=== PATIENT | male | born 1980 | race Caucasian/White ===

== ENCOUNTER 2024-04-20 18:26 | Inpatient (IN) | payer BC, SELFPAY ==
[2024-04-20] VITALS (23 sets, daily range): BP systolic 154–183; BP diastolic 89–110; PULSE 55–84; RESP 16–20; TEMP 35.8–36.7; O2SAT 90–99; BMI 31.2; BMI 32.6
--- NOTE | 2024-04-20 19:15 | CRLHL7_ITS ---
For Patients: As a result of the 21st Century Cures Act, medical imaging exams and procedure reports are released immediately into your electronic medical record. You may view this report before your referring provider. If you have questions, please contact your health care provider. Indication: Rule out dissection and chest abdominal pain Technique: Volumetric multidetector CT images of the chest, abdomen, and pelvis were obtained after the administration of intravenous contrast using an angiographic protocol. Ninety five cc Isovue three seventy low osmolar intravenous contrast Comparison: None available. FINDINGS: CHEST The thoracic inlet is unremarkable. The thyroid gland is within normal limits. The thoracic aorta is nonaneurysmal. There is no filling defect to suggest pulmonary embolus. There are calcified mediastinal and hilar lymph nodes. There is no axillary adenopathy. There is mild central bronchial thickening with basilar atelectasis and parenchymal scar. There is no pneumothorax or pleural effusion. Minimal calcified granulomas are seen in the left lung base. The thoracic osseus structures are intact without fracture, lytic, or blastic lesion. The thoracic vertebral body heights are grossly maintained with minimal endplate Schmorl`s defects. There is mild straightening of the normal thoracic kyphosis without evidence of significant spondylolisthesis. ABDOMEN AND PELVIS The liver is markedly enlarged with extensive hepatic steatosis. There is no focal abnormality. The spleen is normal in attenuation and size. There are cholesterol containing gallstones within the gallbladder lumen. There is no intrahepatic or common ductal dilatation. There is mild thickening of the gastric antrum with minimal duodenal mucosal hyperemia. There is moderate peripancreatic inflammatory change consistent with pancreatitis. The adrenal glands are unremarkable without evidence of adenoma. The kidneys are preserved and corticomedullary differentiation. There is no hydronephrosis or radiopaque calculus. There is a minimal amount of intracolonic stool. There is prior colectomy and reanastomosis. The appendix is likely surgically absent. The abdominal aorta is nonaneurysmal with no significant atherosclerotic disease or filling defect. Normal celiac axis, superior mesenteric and inferior mesenteric arteries.. The remaining solid pelvic viscera are otherwise grossly unremarkable. There is no pathologically enlarged epigastric, mesenteric, retroperitoneal, or pelvic sidewall lymph node. The anterior abdominal wall is grossly intact without significant hernias. There is no free air or free fluid. The visualized osseous structures are grossly intact without evidence of displaced fracture, lytic or blastic lesion. There is prior left hip arthroplasty. The lumbar vertebral body heights are grossly maintained with mild degenerative disc disease. There is no significant spondylolisthesis or displaced fracture. Impression: 1. Minimal basilar atelectasis and parenchymal scar. 2. Moderate peripancreatic inflammatory change consistent with pancreatitis. No evidence of pancreatic necrosis. Marked hepatomegaly and severe hepatic steatosis. 3. Unremarkable aorta and branch vessels. No evidence of dissection. Please note that all CT scans at this facility use dose modulation, iterative reconstruction, and/or weight-based dosing when appropriate to reduce radiation dose to as low as reasonably achievable. Dictated by Vidal Whitten MD @ 04/20/2024 8:30:32 PM (Electronically Signed)
[2024-04-20 19:25] LABS: Basophils Percent Auto 0.4 % (0.0-3.0); Hematocrit 47.7 % (37.0-53.0); Immature Granulocytes Pct Auto 0.7 %; Lymphocytes Percent Auto 16.7 % (20-44); Mean Corpuscular HGB Conc 34 gm/dL (32-36); Mean Corpuscular Hemoglobin 33 pg (26-34); Mean Corpuscular Volume 99 fL (80-100); Monocytes Percent Auto 6.5 % (0.0-11.0); Neutrophils Percent Auto 74.7 % (42.0-72.0); Platelet Count* 284 K/uL (140-440); RDW Coefficient of Variation % 12.1 % (11.5-15.5); White Blood Count* 12.42 K/uL (4.50-11.00)
[2024-04-20 19:28] LABS: Lactate* 4.7 mmol/L (0.5-1.9)
[2024-04-20 19:29] LABS: Slide Review Reflex No
--- NOTE | 2024-04-20 19:40 | ED_ITS ---
HPI - General Adult General Chief complaint: Abdominal Pain Stated complaint: chest/abdomen pain Time Seen by Provider: 04/20/24 19:04 Source: patient Mode of arrival: ambulatory Limitations: no limitations History of Present Illness HPI narrative: 44-year-old male coming in today complaining of chest and abdominal pain that radiates into his back. Pain started around 3 in the afternoon today, 4 hours ago. He states that it started on is his chest, radiated into the abdomen and into his entire back. It feels the pain from his shoulders all the way down to his arm buttocks. Nothing seems to make the pain better. It causes him to feel short of breath, he can not take deep breaths. He states that he feels sweaty. He denies fevers or chills. No vomiting. He denies constipation, states that has about 8 bowel movements per day and this is normal since he had part of his colon removed secondary to ulcerative colitis. He currently takes no medications. He does drink alcohol daily, a little to a lot-he cannot be more specific. States that he still has his gallbladder. Related Data Home Medications ?Medication ?Instructions ?Recorded ?Confirmed No Known Home Medications 04/20/24 04/20/24 Allergies Allergy/AdvReac Type Severity Reaction Status Date / Time No Known Drug Allergies Allergy Verified 04/20/24 18:57 Review of Systems Status of ROS: Reports: 10 or more systems reviewed and unremarkable except as noted in History and below Exam Narrative: Exam Narrative: Well-nourished well-developed patient , clearly uncomfortable. Alert and oriented. Answers questions appropriately. Mood and affect are appropriate. Thoughts are goal oriented and rational. No tangential or magical thinking noted. Patient speaks in full sentences without needing to catch his breath. Patient is diaphoretic. Multiple facial piercings. HEENT: Normocephalic atraumatic. Pupils are equally round reactive to light. Extraocular muscles are intact. Conjunctivae are moist without any icterus noted. Moist mucous membranes. Posterior pharynx is normal. Neck is soft without any lymphadenopathy or thyromegaly. No masses are appreciated. Cardiovascular: Heart is regular rate and rhythm S1 and S2 are present without any murmurs. Lungs: Clear to auscultation bilaterally no wheezes rhonchi or rales are appreciated. Patient complains of discomfort with deep breathing. Abdomen: Soft with normal bowel sounds. He has epigastric tenderness and suprapubic tenderness. Hypoactive bowel sounds. Extremities: Bilateral lower extremities are without edema. Normal DP and PT pulses. Skin: Well perfused, clammy. Back is normal appearance. Const: Vital Signs, click to edit/add: Vital Signs - 24 hr 04/20/24 18:57 04/20/24 19:13 04/20/24 19:15 Temperature 97.6 F Pulse Rate 55 L Pulse Rate [Pulse Oximeter] 68 Respiratory Rate 20 Blood Pressure Blood Pressure [Ri ght Upper Arm] 177/110 H Pulse Oximetry 98 99 96 Oxygen Delivery Me thod Room Air 04/20/24 19:28 04/20/24 19:30 04/20/24 19:35 Temperature Pulse Rate 60 61 57 L Pulse Rate [Pulse Oximeter] Respiratory Rate Blood Pressure 183/103 H Blood Pressure [Ri ght Upper Arm] Pulse Oximetry 93 95 96 Oxygen Delivery Me thod 04/20/24 19:45 04/20/24 19:47 04/20/24 20:00 Temperature Pulse Rate 59 L 57 L 62 Pulse Rate [Pulse Oximeter] Respiratory Rate Blood Pressure 172/103 H Blood Pressure [Ri ght Upper Arm] Pulse Oximetry 96 95 94 Oxygen Delivery Me thod 04/20/24 20:02 Temperature Pulse Rate 68 Pulse Rate [Pulse Oximeter] Respiratory Rate Blood Pressure 167/97 H Blood Pressure [Ri ght Upper Arm] Pulse Oximetry 94 Oxygen Delivery Me thod Course Course ED Course: IV is established. EKG, read by me, shows dryness bradycardia with a pulse of 59. Given the patient's diffuse pain and diaphoresis, concern for dissection and lysis. Therefore chest abdomen pelvis CT was ordered right away. In the meantime labs were drawn and lactate is elevated at 4.7. IV fluids are started. A CBC shows a slightly elevated white cell count 12.4. D-dimer is elevated at 1.6 Electrolytes are unremarkable. Calcium was elevated at 11.4. LFT show an AST of 149 ALT of 195, normal bilirubin levels. Normal troponin. Albumin and total protein are slightly elevated. Lipase is markedly elevated at 4624. 2 L of IV fluids are started. CT results showing pancreatitis, no evidence of dissection. Vital Signs Vital signs: Initial Vital Signs Temperature 97.6 F 04/20/24 18:57 Temperature Source Oral 04/20/24 18:57 Pulse Rate 68 04/20/24 18:57 Respiratory Rate 20 04/20/24 18:57 Blood Pressure 177/110 H 04/20/24 18:57 Blood Pressure Mean 132 H 04/20/24 18:57 Pulse Oximetry 98 04/20/24 18:57 Oxygen Delivery Method Room Air 04/20/24 18:57 Vital Signs Temperature 97.6 F 04/20/24 18:57 Pulse Rate 68 04/20/24 18:57 Respiratory Rate 20 04/20/24 18:57 Blood Pressure 177/110 H 04/20/24 18:57 Pulse Oximetry 98 04/20/24 18:57 Oxygen Delivery Method Room Air 04/20/24 18:57 Temperature 97.6 F 04/20/24 18:57 Pulse Rate 68 04/20/24 20:02 Respiratory Rate 20 04/20/24 18:57 Blood Pressure 167/97 H 04/20/24 20:02 Pulse Oximetry 94 04/20/24 20:02 Oxygen Delivery Method Room Air 04/20/24 18:57 Medications Administered Medications: Generic Name Dose Route Start Last Admin Trade Name Freq PRN Reason Stop Dose Admin Sodium Chloride 1,000 mls @ 1,000 mls/hr 04/20/24 19:45 04/20/24 20:24 0.9 % Sodium Chloride 1000 Ml IV 04/20/24 20:44 Infused .Q1H EVAN Infusion Sodium Chloride 1,000 mls @ 1,000 mls/hr 04/20/24 20:30 04/20/24 20:24 0.9 % Sodium Chloride 1000 Ml IV 04/20/24 21:29 1,000 mls/hr .Q1H EVAN Administration Medical Decision Making MDM Narrative Medical decision making narrative: 44-year-old male with pancreatitis. Patient will be admitted for management. Lab Data Labs: Lab Results 04/20/24 04/20/24 Range/Units 19:10 19:13 WBC 12.42 H (4.50-11.00) K/uL RBC 4.80 (4.30-5.90) m/uL Hgb 16.0 (13.5-17.5) gm/dL Hct 47.7 (37.0-53.0) % MCV 99 (80-100) fL MCH 33 (26-34) pg MCHC 34 (32-36) gm/dL RDW Coeff of [place] 12.1 (11.5-15.5) % Plt Count 284 (140-440) K/uL Neut % (Auto) 74.7 H (42.0-72.0) % Lymph % (Auto) 16.7 L (20-44) % [place] % (Auto) 6.5 (0.0-11.0) % Eos % (Auto) 1.0 (0.0-7.0) % Baso % (Auto) 0.4 (0.0-3.0) % Neut # (Auto) 9.30 H (1.7-7.0) K/uL Lymph # (Auto) 2.10 (0.90-2.90) K/uL [place] # (Auto) 0.80 (0.00-0.90) K/UL Eos # (Auto) 0.10 (0.00-0.50) K/uL Baso # (Auto) 0.00 (0.00-0.30) K/uL Abs Immat Gran (auto) 0.10 (0.00-0.30) K/uL Imm/Tot Granulo (auto) 0.7 % D-Dimer Quant (PE/DVT) 1.69 H (0.00-0.50) ug/ml Sodium 139 (135-149) mmol/L Potassium 3.5 L (3.6-5.1) mmol/L Chloride 97 (96-114) mmol/L Carbon Dioxide 30 (20-32) mmol/L Anion Gap 12 (7-15) mEq/L BUN 11 (5-24) mg/dL Creatinine 1.2 (0.5-1.5) mg/dL Estimated Creat Clear 87.12 Estimated GFR 77 ml/min Glucose 155 H (60-115) mg/dL Lactate 4.7 H* (0.5-1.9) mmol/L Calcium 11.4 H (8.4-10.6) mg/dL Total Bilirubin 0.8 (0.1-1.5) mg/dL Direct Bilirubin 0.5 (0.0-0.5) mg/dL AST 149 H (12-35) U/L ALT 195 H (4-50) U/L Alkaline Phosphatase 85 (40-150) U/L Troponin I < 0.01 L (0.01-0.04) ng/mL C-Reactive Protein 1.1 H (0.5-1.0) mg/dL Total Protein 8.8 H (6.0-8.3) g/dL Albumin 5.2 H (3.3-5.0) g/dL Lipase 4624 H (23-300) U/L Procalcitonin 0.10 (<0.50) ng/mL Ethyl Alcohol < 0.01 L (0.01-0.03) % POC Troponin I 0.00 L (0.01-0.04) ng/ml Imaging Data CT Chest/Ab/Pelvis: Attestation: I have reviewed the pertinent imaging results. Radiologist's impression: Technique: Volumetric multidetector CT images of the chest, abdomen, and pelvis were obtained after the administration of intravenous contrast using an angiographic protocol. Ninety five cc Isovue three seventy low osmolar intravenous contrast Comparison: None available. FINDINGS: CHEST The thoracic inlet is unremarkable. The thyroid gland is within normal limits. The thoracic aorta is nonaneurysmal. There is no filling defect to suggest pulmonary embolus. There are calcified mediastinal and hilar lymph nodes. There is no axillary adenopathy. There is mild central bronchial thickening with basilar atelectasis and parenchymal scar. There is no pneumothorax or pleural effusion. Minimal calcified granulomas are seen in the left lung base. The thoracic osseus structures are intact without fracture, lytic, or blastic lesion. The thoracic vertebral body heights are grossly maintained with minimal endplate Schmorl`s defects. There is mild straightening of the normal thoracic kyphosis without evidence of significant spondylolisthesis. ABDOMEN AND PELVIS The liver is markedly enlarged with extensive hepatic steatosis. There is no focal abnormality. The spleen is normal in attenuation and size. There are cholesterol containing gallstones within the gallbladder lumen. There is no intrahepatic or common ductal dilatation. There is mild thickening of the gastric antrum with minimal duodenal mucosal hyperemia. There is moderate peripancreatic inflammatory change consistent with pancreatitis. The adrenal glands are unremarkable without evidence of adenoma. The kidneys are preserved and corticomedullary differentiation. There is no hydronephrosis or radiopaque calculus. There is a minimal amount of intracolonic stool. There is prior colectomy and reanastomosis. The appendix is likely surgically absent. The abdominal aorta is nonaneurysmal with no significant atherosclerotic disease or filling defect. Normal celiac axis, superior mesenteric and inferior mesenteric arteries.. The remaining solid pelvic viscera are otherwise grossly unremarkable. There is no pathologically enlarged epigastric, mesenteric, retroperitoneal, or pelvic sidewall lymph node. The anterior abdominal wall is grossly intact without significant hernias. There is no free air or free fluid. The visualized osseous structures are grossly intact without evidence of displaced fracture, lytic or blastic lesion. There is prior left hip arthroplasty. The lumbar vertebral body heights are grossly maintained with mild degenerative disc disease. There is no significant spondylolisthesis or displaced fracture. Impression: 1. Minimal basilar atelectasis and parenchymal scar. 2. Moderate peripancreatic inflammatory change consistent with pancreatitis. No evidence of pancreatic necrosis. Marked hepatomegaly and severe hepatic steatosis. 3. Unremarkable aorta and branch vessels. No evidence of dissection. ECG Data Attestation: I personally reviewed and interpreted this ECG as follows: Discharge Plan Discharge Clinical Impression: Pancreatitis Patient Disposition: Admitted As Observation Condition: Stable Prescriptions: No Action No Known Home Medications Follow Up/Referrals: Provider,Not a Local [Primary Care Provider] -
[2024-04-20 19:49] LABS: Albumin* 5.2 g/dL (3.3-5.0); Chloride* 97 mmol/L (96-114); Sodium* 139 mmol/L (135-149)
[2024-04-20 19:50] LABS: D Dimer Quantitative* 1.69 ug/ml (0.00-0.50); Potassium* 3.5 mmol/L (3.6-5.1)
[2024-04-20 19:51] LABS: Creatinine* 1.2 mg/dL (0.5-1.5); Est. Creatinine Clearance* 87.12; Estimated Glomerular Filt Rate 77 ml/min
[2024-04-20 19:52] LABS: Alkaline Phosphatase* 85 U/L (40-150); Anion Gap 12 mEq/L (7-15); Aspartate Amino Transferase* 149 U/L (12-35); Bilirubin Direct* 0.5 mg/dL (0.0-0.5); Bilirubin Total* 0.8 mg/dL (0.1-1.5); Blood Urea Nitrogen* 11 mg/dL (5-24); Carbon Dioxide* 30 mmol/L (20-32); Glucose* 155 mg/dL (60-115); Total Protein* 8.8 g/dL (6.0-8.3)
[2024-04-20 19:53] LABS: Alanine Aminotransferase* 195 U/L (4-50); Calcium* 11.4 mg/dL (8.4-10.6)
[2024-04-20 19:55] LABS: C Reactive Protein* 1.1 mg/dL (0.5-1.0)
[2024-04-20] MEDS: 0.9 % SODIUM CHLORIDE 1000 ml 1,000 ML IV ×2 (19:55→20:24)
[2024-04-20 19:56] LABS: Ethanol* < 0.01 % (0.01-0.03)
[2024-04-20 20:05] LABS: Troponin I* < 0.01 ng/mL (0.01-0.04)
[2024-04-20 20:11] LABS: Lipase* 4624 U/L (23-300)
[2024-04-20] MEDS: MORPHINE 2 MG/ML inj IVP (20:46)
[2024-04-20 20:57] LABS: Appearance Urine Clear (Clear); Bilirubin Urine Negative (Negative); Blood Urine Negative (Negative); Color Urine Yellow (Yellow); Glucose Urine Negative (Negative); Ketones Urine Negative (Negative); Leukocyte Esterase Urine Negative (Negative); Nitrite Urine Negative (Negative); Protein Urine Negative (Negative); Specific Gravity Urine 1.015 (1.000-1.030); Urobilinogen Urine 0.2 (0.2-1.0); pH Urine 7.5 (5.0-8.5)
[2024-04-20] MEDS: HYDROmorphone 0.5 mg/0.5 ml inj IVP ×2 (21:12→22:25)
[2024-04-20 21:19] LABS: RBC Urine 0-2 (0-2); WBC Urine 0-2 (0-5)
[2024-04-20] MEDS: ONDANSETRON 2 MG/ML inj 4 MG IVP (22:25)
[2024-04-20] MEDS: 0.9 % SODIUM CH + KCL 20 mEq/L 1,000 ML 125 ML IV (23:18)
[2024-04-20] MEDS: LORazepam 2 MG/ML inj 0.5 MG IVP (23:19)
[2024-04-20] MEDS: HYDROmorphone 0.5 mg/0.5 ml inj 1 MG IVP (23:19)
--- NOTE | 2024-04-20 23:48 | P.IMHP_ITS ---
Hospitalist- H&P: HPI History of Present Illness Date Seen: 04/20/24 Chief complaint: chest/abdomen pain Narrative: Dionicio Barrera is a 44 year old man was in his usual state of health until around 3:00 p.m. today. Started having epigastric pain radiating up into his chest and back. Rated pain as 9/10. No fevers, rigors, diaphoresis. No nausea vomiting. No diarrhea or constipation. Ordinarily has roughly a bowel movements daily, with ileostomy in place, status post total colectomy due to ulcerative colitis a number years ago. Bowel movement habits not changed today. No recent trauma, injury, infection that he is aware of. No recent travel. Drinks alcohol on daily basis. 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 Denies alcohol withdrawals. Denies use of other street or recreational drugs. Denies use of tobacco. Review of Systems Status of ROS: Reports: 6 or more systems reviewed and unremarkable except as noted in History and below Narrative: Denies cough, dyspnea, angina or anginal equivalent, syncope or near syncope. Denies lightheadedness or orthostasis. Has never had any discomfort like this in the past. 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 Lives in an apartment with a roommate. What is your current living situation?: I presently have a place to live Problems where you live: no known problems Problems where you live details: NA In the past 12 months, utilities in danger of being shut off: no In past 12 months, lack of transportation kept you from medical appts, meetings, work, or getting things needed for daily living: no In the past 12 mos, have been you worried that your food would run out before you had money to buy more?: never true In the past 12 mos, the food you bought just didn't last and you didn't have money to buy more?: never true Highest level of school completed/degree received: Bachelor's degree Smoking Status: Never smoker Second hand tobacco smoke exposure: No How often do you have a drink containing alcohol: never AUDIT-C Alcohol total score: 0 Non-prescribed substance use: denies use Caffeine: No How often does anyone, including family, friends and others, physically hurt you : never How often does anyone, including family, friends and others, insult or talk down to you: never How often does anyone, including family, friends and others, threaten you with harm: never How often does anyone, including family, friends and others, scream or curse at you: never service: No Meds Home Medications and Allergies Home Medications ?Medication ?Instructions ?Recorded ?Confirmed ?Type No Known Home Medications 04/20/24 04/20/24 History Allergies Allergy/AdvReac Type Severity Reaction Status Date / Time No Known Drug Allergies Allergy Verified 04/20/24 18:57 Exam Narrative: Exam Narrative: I examine him in the emergency department. He is sitting very still, grimacing. Appears uncomfortable. Vision and hearing are adequate. Alert and oriented to self, place, time, situation. Articulate. Cooperative. Anxious. He acknowledges anxious disposition. External auditory canals are clear as is his tympanic membranes. Midline nasal septum. Conjugate gaze. Dentition in good repair. Moist buccal mucosa. Has a full pan. Neck is supple. Midline trachea. No head neck lymphadenopathy. Decreased breath sounds right side of lung. Lungs are clear. No CVA tenderness. Abdomen with active bowel sounds. Subjective discomfort in epigastrium. No rebound. Ileostomy in place. No blood in ileostomy pouch. No focal motor neurologic deficits. Skin is intact. Const: Vital Signs, click to edit/add: Vital Signs - 24 hr 04/20/24 18:57 04/20/24 19:13 04/20/24 19:15 Temperature 97.6 F Pulse Rate 55 L Pulse Rate [Pulse Oximeter] 68 Pulse Rate [Right Pulse Oximeter] Respiratory Rate 20 Blood Pressure Blood Pressure [Ri ght Arm] Blood Pressure [Ri ght Upper Arm] 177/110 H Pulse Oximetry 98 99 96 Oxygen Delivery Me thod Room Air 04/20/24 19:28 04/20/24 19:30 04/20/24 19:35 Temperature Pulse Rate 60 61 57 L Pulse Rate [Pulse Oximeter] Pulse Rate [Right Pulse Oximeter] Respiratory Rate Blood Pressure 183/103 H Blood Pressure [Ri ght Arm] Blood Pressure [Ri ght Upper Arm] Pulse Oximetry 93 95 96 Oxygen Delivery Me thod 04/20/24 19:45 04/20/24 19:47 04/20/24 20:00 Temperature Pulse Rate 59 L 57 L 62 Pulse Rate [Pulse Oximeter] Pulse Rate [Right Pulse Oximeter] Respiratory Rate Blood Pressure 172/103 H Blood Pressure [Ri ght Arm] Blood Pressure [Ri ght Upper Arm] Pulse Oximetry 96 95 94 Oxygen Delivery Me thod 04/20/24 20:02 04/20/24 20:17 04/20/24 20:32 Temperature Pulse Rate 68 68 69 Pulse Rate [Pulse Oximeter] Pulse Rate [Right Pulse Oximeter] Respiratory Rate 20 20 Blood Pressure 167/97 H 161/92 H 170/93 H Blood Pressure [Ri ght Arm] Blood Pressure [Ri ght Upper Arm] Pulse Oximetry 94 96 92 Oxygen Delivery Me thod 04/20/24 20:37 04/20/24 20:47 04/20/24 21:02 Temperature 98.0 F Pulse Rate 79 73 Pulse Rate [Pulse Oximeter] Pulse Rate [Right Pulse Oximeter] 73 Respiratory Rate 20 20 20 Blood Pressure 163/95 H 167/104 H Blood Pressure [Ri ght Arm] 163/95 H Blood Pressure [Ri ght Upper Arm] Pulse Oximetry 95 96 94 Oxygen Delivery Me thod Room Air 04/20/24 21:17 04/20/24 21:19 04/20/24 21:31 Temperature 98.0 F 98.0 F 96.5 F L Pulse Rate Pulse Rate [Pulse Oximeter] 68 68 Pulse Rate [Right Pulse Oximeter] 73 70 Respiratory Rate 20 20 16 Blood Pressure Blood Pressure [Ri ght Arm] 163/95 H 180/102 H Blood Pressure [Ri ght Upper Arm] 165/89 H 165/89 H Pulse Oximetry 94 95 Oxygen Delivery Me thod Room Air Room Air 04/20/24 21:31 04/20/24 21:39 04/20/24 22:13 Temperature 96.5 F L 96.5 F L Pulse Rate Pulse Rate [Pulse Oximeter] Pulse Rate [Right Pulse Oximeter] 70 70 Respiratory Rate 16 16 16 Blood Pressure Blood Pressure [Ri ght Arm] 180/102 H 180/102 H Blood Pressure [Ri ght Upper Arm] Pulse Oximetry 95 95 95 Oxygen Delivery Al thod Room Air Room Air Room Air 04/20/24 23:29 04/20/24 23:33 04/20/24 23:34 Temperature 98.1 F Pulse Rate Pulse Rate [Pulse Oximeter] Pulse Rate [Right Pulse Oximeter] 84 84 Respiratory Rate 16 16 16 Blood Pressure Blood Pressure [Ri ght Arm] 154/99 H Blood Pressure [Ri ght Upper Arm] Pulse Oximetry 90 90 Oxygen Delivery Al thod Room Air Room Air Hospitalist - H&P: Result Labs Labs: Short CBC 04/20/24 Range/Units 19:10 WBC 12.42 H (4.50-11.00) K/uL Hgb 16.0 (13.5-17.5) gm/dL Hct 47.7 (37.0-53.0) % Plt Count 284 (140-440) K/uL BMP 04/20/24 19:10 Sodium 139 Potassium 3.5 L Chloride 97 Carbon Dioxide 30 BUN 11 Creatinine 1.2 Glucose 155 H Calcium 11.4 H Cardiac Enzymes 04/20/24 Range/Units 19:10 Troponin I < 0.01 L (0.01-0.04) ng/mL Liver Function 04/20/24 Range/Units 19:10 Total Bilirubin 0.8 (0.1-1.5) mg/dL Direct Bilirubin 0.5 (0.0-0.5) mg/dL AST 149 H (12-35) U/L ALT 195 H (4-50) U/L Alkaline Phosphatase 85 (40-150) U/L Albumin 5.2 H (3.3-5.0) g/dL Urine 04/20/24 Range/Units 20:34 Urine Color Yellow (Yellow) Urine Appearance Clear (Clear) Urine pH 7.5 (5.0-8.5) Ur Specific [place] 1.015 (1.000-1.030) Urine Protein Negative (Negative) Urine Glucose (UA) Negative (Negative) Imaging CT scan - abdomen: Attestation: I have reviewed the pertinent imaging results. Radiologist's impression: Minimal basilar atelectasis. Moderate peripancreatic inflammation consistent with pancreatitis. No evidence of pancreatic necrosis at this time. Cholesterol containing gallstones within the gallbladder lumen. No intrahepatic or common duct dilatation. Marked hepatomegaly with severe hepatic steatosis. Assessment and Plan Assessment and plan (1) Hepatic steatosis: Problem comment: - possibly due to alcohol consumption verses being overweight, or both Status: Acute (2) Pancreatitis: Problem comment: - most likely associated with alcohol use. Does have gallstones. - IV fluids, clear liquids as tolerated and advance as tolerated, analgesics, antiemetics - I am concerned about the elevated lactate. Treat with IV fluids for now. Monitor lactate. Consider reimaging with CT scan in a couple of days if pain is not resolving to assess for possible evolving pancreatic necrosis or phlegmon development. - ultrasound of abdomen tomorrow to consider possibility of gallstone induced pancreatitis - consider MRCP if warranted. Status: Acute (3) Alcohol use: Problem comment: - consumes 8 drinks daily, beer mixed with vodka and Gatorade - denies alcohol withdrawal Status: Acute (4) Ileostomy status: Problem comment: - status post total colectomy a number of years ago due to ulcerative colitis Status: Acute Plan 1. Reviewed impression and plan with patient. 2. Answered his questions to his satisfaction. 3. Patient agreeable with above stated plans and recommendations. Total Time Spent Total Time Spent: 60 minutes
[2024-04-20] MEDS: LACTATED RINGERS 1000 ML 1,000 ML IV (23:59)
[2024-04-21] VITALS (13 sets, daily range): BP systolic 136–168; BP diastolic 80–115; PULSE 97–136; RESP 16–20; TEMP 35.6–37.4; O2SAT 84–96
[2024-04-21] MEDS: HYDROmorphone 0.5 mg/0.5 ml inj 1 MG IVP ×10 (00:26→22:25)
--- NOTE | 2024-04-21 03:39 | PC.NURSE ---
Pt ab pain very hard to control. NPO. [place] is under control. CIWA unremarkable. Pt up IND and voiding.
[2024-04-21] MEDS: ONDANSETRON 2 MG/ML inj 4 MG IVP ×2 (06:04→20:16)
[2024-04-21 06:24] LABS: Lactate* 2.8 mmol/L (0.5-1.9)
[2024-04-21 06:28] LABS: Basophils Absolute Auto 0.03 K/uL (0.00-0.30); Basophils Percent Auto 0.3 % (0.0-3.0); Eosinophils Absolute Auto 0.02 K/uL (0.00-0.50); Eosinophils Percent Auto 0.2 % (0.0-7.0); Hematocrit 44.4 % (37.0-53.0); Hemoglobin* 14.7 gm/dL (13.5-17.5); Immature Granulocytes Abs Auto 0.03 K/uL (0.00-0.30); Immature Granulocytes Pct Auto 0.3 %; Lymphocytes Percent Auto 7.4 % (20-44); Mean Corpuscular HGB Conc 33 gm/dL (32-36); Mean Corpuscular Hemoglobin 34 pg (26-34); Mean Corpuscular Volume 101 fL (80-100); Monocytes Percent Auto 4.2 % (0.0-11.0); Neutrophils Percent Auto 87.6 % (42.0-72.0); Platelet Count* 209 K/uL (140-440); RDW Coefficient of Variation % 12.7 % (11.5-15.5); Red Blood Count 4.38 m/uL (4.30-5.90); White Blood Count* 9.65 K/uL (4.50-11.00)
[2024-04-21 06:41] LABS: Slide Review Reflex No
[2024-04-21 06:54] LABS: Chloride* 102 mmol/L (96-114)
[2024-04-21 06:55] LABS: Potassium* 4.1 mmol/L (3.6-5.1); Sodium* 140 mmol/L (135-149)
[2024-04-21 06:57] LABS: Est. Creatinine Clearance* 104.54; Estimated Glomerular Filt Rate 96 ml/min
[2024-04-21 06:58] LABS: Anion Gap 8 mEq/L (7-15); Blood Urea Nitrogen* 12 mg/dL (5-24); Carbon Dioxide* 30 mmol/L (20-32); Cholesterol* 187 mg/dL (90-199); Glucose* 124 mg/dL (60-115); Triglycerides* 257 mg/dL (40-149)
[2024-04-21 06:59] LABS: Calcium* 10.1 mg/dL (8.4-10.6); HDL Cholesterol* 49 mg/dL (>=40); LDL Cholesterol Calculated 86 mg/dL (<100); Magnesium* 1.3 mg/dL (1.5-2.6)
--- NOTE | 2024-04-21 07:00 | CRLHL7_ITS ---
For Patients: As a result of the Century Cures Act, medical imaging exams and procedure reports are released immediately into your electronic medical record. You may view this report before your referring provider. If you have questions, please contact your health care provider. INDICATION: Pancreatitis. TECHNIQUE: Ultrasound abdomen limited. COMPARISON: None. FINDINGS: Gallbladder: Small stones present. Mild wall thickening measuring 3-4 mm. Acute cholecystitis is possible but not definite. Common bile duct: 6 mm. No ductal stone visualized. Dictated by Robert Willingham MD @ 04/21/2024 7:00:03 AM (Electronically Signed)
[2024-04-21 07:02] LABS: Phosphorus* 6.2 mg/dL (2.5-4.5)
[2024-04-21 07:39] LABS: Lipase* 13043 U/L (23-300)
[2024-04-21] MEDS: SODIUM CHLORIDE 0.9 % (FLUSH) 10 ML SYRINGE 5 ML IVF ×6 (08:37→22:25)
[2024-04-21] MEDS: LORazepam 2 MG/ML inj IVP (09:01)
--- NOTE | 2024-04-21 09:07 | CRLHL7_ITS ---
For Patients: As a result of the Century Cures Act, medical imaging exams and procedure reports are released immediately into your electronic medical record. You may view this report before your referring provider. If you have questions, please contact your health care provider. INDICATION: Hypoxia. TECHNIQUE: Chest 1 views. COMPARISON: None. FINDINGS/IMPRESSION: Normal cardiomediastinal silhouette. Low lung volumes with hazy bibasilar opacities, [id number], at least partially reflecting atelectasis, though left basilar superimposed aspiration or pneumonia could have a similar appearance. No pleural effusion or pneumothorax. No acute osseous or soft tissue abnormalities. Dictated by Pavel Rowe MD @ 04/21/2024 9:40:18 AM (Electronically Signed)
--- NOTE | 2024-04-21 09:10 | P.IMPN_ITS ---
Progress Note: A&P Assessment and plan (1) Pancreatitis: Problem details: - most likely associated with alcohol use, found to have gallstones on abdominal ultrasound as well - IV fluids, analgesics, antiemetics - clear liquids, advance to low fat diet as tolerated - continue IVFs for elevated lactate (trending downward), close monitoring of symptoms given risk for evolving pancreatic necrosis or phlegmon development - low threshold for transfer to tertiary care center if persistent tachycardia or any other worsening symptoms Status: Acute (2) Tachycardia: Problem details: - sinus tachycardia on EKG, negative troponin - also has elevated BP, likely combination of pain, anxiety, mild ETOH withdrawal, dehydration - telemetry initiated 04/21, continue pain mgmt, CIWA, IVFs - noted to have elevated d-dimer in ED on 04/20; will obtain CTA of chest today to evaluate for PE Status: Acute (3) Ileostomy status: Problem details: - status post total colectomy a number of years ago due to ulcerative colitis Status: Acute (4) Hepatic steatosis: Problem details: - ETOH vs elevated BMI vs idiopathic vs combination Status: Acute (5) Alcohol use: Problem details: - consumes 8 drinks daily, beer mixed with vodka and Gatorade - denies alcohol withdrawal, CIWA protocol Status: Acute Plan - IVFs, electrolyte replacement, analgesia - HIDA scan 04/22 Subjective Date Seen: 04/21/24 Interval history: Dionicio was admitted to the hospital last night for abdominal pain in the setting of pancreatitis. Also noted to have gallstones and mild gallbladder wall thickening on abdominal ultrasound. Dr. Julian of General Surgery has been consulted and will see the patient today. This morning, he continues to have abdominal pain, primarily epigastric. He is also noted to have tachycardia, hypertension, and hypoxia. Endorses anxiety. Reassuring EKG, negative troponin. Lactate trending downward. Exam Narrative: Exam Narrative: GEN: Alert and oriented, nontoxic HEENT: Normal external ears, EOMIs bilaterally, no scleral icterus CV: Sinus tachycardia, no concerning murmurs noted R: Intermittent tachypnea Ab: + ttp, + distention Ext: wwp, no concerning edema Skin: No concerning skin lesions or rashes on exposed skin Neuro: Nonfocal Psych: Appropriate Const: Vital Signs, click to edit/add: Vital Signs - 24 hr 04/20/24 18:57 04/20/24 19:13 04/20/24 19:15 Temperature 97.6 F Pulse Rate 55 L Pulse Rate [Pulse Oximeter] 68 Pulse Rate [Right Pulse Oximeter] Respiratory Rate 20 Blood Pressure Blood Pressure [Ri ght Arm] Blood Pressure [Ri ght Upper Arm] 177/110 H Pulse Oximetry 98 99 [facility] 04/20/24 19:28 04/20/24 19:30 04/20/24 19:35 Temperature Pulse Rate 60 61 57 L Pulse Rate [Pulse Oximeter] Pulse Rate [Right Pulse Oximeter] Respiratory Rate Blood Pressure 183/103 H Blood Pressure [Ri ght Arm] Blood Pressure [Ri ght Upper Arm] Pulse Oximetry 93 95 96 [facility] 04/20/24 19:45 04/20/24 19:47 04/20/24 20:00 Temperature Pulse Rate 59 L 57 L 62 Pulse Rate [Pulse Oximeter] Pulse Rate [Right Pulse Oximeter] Respiratory Rate Blood Pressure 172/103 H Blood Pressure [Ri ght Arm] Blood Pressure [Ri ght Upper Arm] Pulse Oximetry 96 95 94 [facility] 04/20/24 20:02 04/20/24 20:17 04/20/24 20:32 Temperature Pulse Rate 68 68 69 Pulse Rate [Pulse Oximeter] Pulse Rate [Right Pulse Oximeter] Respiratory Rate 20 20 Blood Pressure 167/97 H 161/92 H 170/93 H Blood Pressure [Ri ght Arm] Blood Pressure [Ri ght Upper Arm] Pulse Oximetry 94 96 92 [facility] 04/20/24 20:37 04/20/24 20:47 04/20/24 21:02 Temperature 98.0 F Pulse Rate 79 73 Pulse Rate [Pulse Oximeter] Pulse Rate [Right Pulse Oximeter] 73 Respiratory Rate 20 20 20 Blood Pressure 163/95 H 167/104 H Blood Pressure [Ri ght Arm] 163/95 H Blood Pressure [Ri ght Upper Arm] Pulse Oximetry 95 96 94 [facility] 04/20/24 21:17 04/20/24 21:19 04/20/24 21:31 Temperature 98.0 F 98.0 F 96.5 F L Pulse Rate Pulse Rate [Pulse Oximeter] 68 68 Pulse Rate [Right Pulse Oximeter] 73 70 Respiratory Rate 20 20 16 Blood Pressure Blood Pressure [Ri ght Arm] 163/95 H 180/102 H Blood Pressure [Ri ght Upper Arm] 165/89 H 165/89 H Pulse Oximetry 94 95 Oxygen Delivery Me thod Room Air Room Air 04/20/24 21:31 04/20/24 21:39 04/20/24 22:13 Temperature 96.5 F L 96.5 F L Pulse Rate Pulse Rate [Pulse Oximeter] Pulse Rate [Right Pulse Oximeter] 70 70 Respiratory Rate 16 16 16 Blood Pressure Blood Pressure [Ri ght Arm] 180/102 H 180/102 H Blood Pressure [Ri ght Upper Arm] Pulse Oximetry 95 95 95 Oxygen Delivery Me thod Room Air Room Air Room Air 04/20/24 23:29 04/20/24 23:33 04/20/24 23:34 Temperature 98.1 F Pulse Rate Pulse Rate [Pulse Oximeter] Pulse Rate [Right Pulse Oximeter] 84 84 Respiratory Rate 16 16 16 Blood Pressure Blood Pressure [Ri ght Arm] 154/99 H Blood Pressure [Ri ght Upper Arm] Pulse Oximetry 90 90 Oxygen Delivery Me thod Room Air Room Air 04/21/24 02:47 04/21/24 05:18 Temperature 98.1 F 98.1 F Pulse Rate Pulse Rate [Pulse Oximeter] Pulse Rate [Right Pulse Oximeter] 99 99 Respiratory Rate 16 16 Blood Pressure Blood Pressure [Ri ght Arm] 145/88 H 145/88 H Blood Pressure [Ri ght Upper Arm] Pulse Oximetry 90 90 Oxygen Delivery Me thod Room Air Room Air Labs Labs: Laboratory Results - last 24 hr 04/20/24 04/20/24 04/20/24 19:10 19:13 20:34 WBC 12.42 H RBC 4.80 Hgb 16.0 Hct 47.7 MCV 99 MCH 33 MCHC 34 RDW Coeff of Delaney 12.1 Plt Count 284 Neut % (Auto) 74.7 H Lymph % (Auto) 16.7 L Walsh % (Auto) 6.5 Eos % (Auto) 1.0 Baso % (Auto) 0.4 Neut # (Auto) 9.30 H Lymph # (Auto) 2.10 Walsh # (Auto) 0.80 Eos # (Auto) 0.10 Baso # (Auto) 0.00 Abs Immat Gran (auto) 0.10 Imm/Tot Granulo (auto) 0.7 D-Dimer Quant (PE/DVT) 1.69 H Sodium 139 Potassium 3.5 L Chloride 97 Carbon Dioxide 30 Anion Gap 12 BUN 11 Creatinine 1.2 Estimated Creat Clear 87.12 Estimated GFR 77 Glucose 155 H Lactate 4.7 H* Calcium 11.4 H Phosphorus Magnesium Total Bilirubin 0.8 Direct Bilirubin 0.5 AST 149 H ALT 195 H Alkaline Phosphatase 85 Troponin I < 0.01 L C-Reactive Protein 1.1 H Total Protein 8.8 H Albumin 5.2 H Triglycerides Cholesterol LDL Cholesterol, Calc HDL Cholesterol Lipase 4624 H Procalcitonin 0.10 Urine Color Yellow Urine Appearance Clear Urine pH 7.5 Ur Specific Lyons 1.015 Urine Protein Negative Urine Glucose (UA) Negative Urine Ketones Negative Urine Blood Negative Urine Nitrite Negative Urine Bilirubin Negative Urine Urobilinogen 0.2 Ur Leukocyte Esterase Negative Urine RBC 0-2 Urine WBC 0-2 Ur Squamous Epith Cells None Urine Bacteria None Ethyl Alcohol < 0.01 L POC Troponin I 0.00 L 04/20/24 04/21/24 22:40 06:07 WBC 9.65 RBC 4.38 Hgb 14.7 Hct 44.4 MCV 101 H MCH 34 MCHC 33 RDW Coeff of Delaney 12.7 Plt Count 209 Neut % (Auto) 87.6 H Lymph % (Auto) 7.4 L Walsh % (Auto) 4.2 Eos % (Auto) 0.2 Baso % (Auto) 0.3 Neut # (Auto) 8.50 H Lymph # (Auto) 0.70 L Walsh # (Auto) 0.40 Eos # (Auto) 0.02 Baso # (Auto) 0.03 Abs Immat Gran (auto) 0.03 Imm/Tot Granulo (auto) 0.3 D-Dimer Quant (PE/DVT) Sodium 140 Potassium 4.1 Chloride 102 Carbon Dioxide 30 Anion Gap 8 BUN 12 Creatinine 1.0 Estimated Creat Clear 104.54 Estimated GFR 96 Glucose 124 H Lactate 4.0 H 2.8 H Calcium 10.1 Phosphorus 6.2 H* Magnesium 1.3 L Total Bilirubin Direct Bilirubin AST ALT Alkaline Phosphatase Troponin I C-Reactive Protein 4.0 H Total Protein Albumin Triglycerides 257 H Cholesterol 187 LDL Cholesterol, Calc 86 HDL Cholesterol 49 Lipase 00383 H Procalcitonin Urine Color Urine Appearance Urine pH Ur Specific Lyons Urine Protein Urine Glucose (UA) Urine Ketones Urine Blood Urine Nitrite Urine Bilirubin Urine Urobilinogen Ur Leukocyte Esterase Urine RBC Urine WBC Ur Squamous Epith Cells Urine Bacteria Ethyl Alcohol POC Troponin I
[2024-04-21 09:25] LABS: Lactate* 2.3 mmol/L (0.5-1.9)
--- NOTE | 2024-04-21 09:39 | NUTR.NU ---
RDN with diet education related to pancreatitis. Patient admitted for Hepatic steatosis and pancreatitis, most likely associated with alcohol use. Per IDT, patient does have gallstones, general surgery consulted. Past medical history includes but not limited to daily alcohol use (consumes up to 8 drinks daily, beer mixed with vodka and Gatorade) and status post Ileostomy (has ileostomy a number of years ago due to ulcerative colitis). Current weight 240 lb 8oz; height 6ft; BMI 32.6 kg/m2. No weight history to assess. Current diet order is NPO. Pancreatitis is a new diagnosis for patient. Not appropriate to visit at this time due to NPO status. RDN will continue to monitor and attempt to provide diet ed when appropriate and closer to discharge.
[2024-04-21] MEDS: 0.9 % SODIUM CH + KCL 20 mEq/L 1,000 ML 125 ML IV ×2 (09:57→22:25)
[2024-04-21] MEDS: MAGNESIUM IV 2 GM/50 ML PIGGYBACK IVPB (09:59)
[2024-04-21 10:09] LABS: Troponin I* < 0.01 ng/mL (0.01-0.04)
--- NOTE | 2024-04-21 11:40 | CRLHL7_ITS ---
For Patients: As a result of the Century Cures Act, medical imaging exams and procedure reports are released immediately into your electronic medical record. You may view this report before your referring provider. If you have questions, please contact your health care provider. INDICATION: Hypoxia, elevated D-dimer. TECHNIQUE: CT chest PE was acquired with 100 cc Omnipaque 350 IV contrast. COMPARISON: None. FINDINGS: Heart and vasculature: Contrast opacification of the pulmonary arterial tree is adequate. No sign of pulmonary embolism. Heart size is normal. Thoracic aorta and pulmonary artery are normal in caliber. Mild coronary artery calcification. Lungs and pleura: Small left lower lobe consolidation and trace right basilar consolidation. There is a 5 millimeter right lower lobe pulmonary nodule (6/106). There is a 5 millimeter nodule along the right minor fissure, likely intra fissural lymph node (6/69) scattered calcified granulomas. Lymph nodes/mediastinum: Calcified left hilar lymph nodes. Chest wall: No masses. Upper abdomen: Hepatic steatosis. Partially visualized pancreas appears edematous with surrounding soft tissue stranding and trace fluid. Bones: Unremarkable for age. IMPRESSION: No pulmonary embolism. Partially visualized pancreas is concerning for acute pancreatitis. Correlate with symptoms and lipase. Bibasilar consolidations, which may represent atelectasis/aspiration. There is a 5 millimeter right lower lobe pulmonary nodule, which may be infectious/inflammatory. If the patient is low risk, no follow-up indicated. If the patient is high risk consider further evaluation with CT chest in 12 months. R Please note that all CT scans at this facility use dose modulation, iterative reconstruction, and/or weight-based dosing when appropriate to reduce radiation dose to as low as reasonably achievable. Dictated by Andree Mosquera MD @ 04/21/2024 1:32:49 PM (Electronically Signed)
[2024-04-21] MEDS: LACTATED RINGERS 500 ML 500 ML IV (12:22)
--- NOTE | 2024-04-21 12:33 | P.GSCN_ITS ---
History of Present Illness Consult details Date Seen: 04/21/24 Consult date: 04/21/24 Narrative: 44-year-old male was admitted to the hospital with acute pancreatitis and I was asked by Dr. Zurita to see him in consultation. Patient states that yesterday he woke up and had his usual protein shake. After having that, he developed severe pain in the upper abdomen that was radiating to his entire back. The pain spread all over his abdomen and the entire abdomen was involved. He was not passing gas but today prior to my interview passed gas and had a bowel movement. His usual pattern is 8 liquid bowel movements per day. Patient describes the pain as ?severe?. The pain is only slightly better than yesterday. Patient has a history of total colectomy with ileostomy and J-pouch in 2011 for ulcerative colitis. Patient has never had similar episodes of pain before. Patient dress drink alcohol 2-3 drinks per day and up to 8-9 drinks per day. It is usually either beer or beer and vodka. Patient states that he has been drinking alcohol on and off for years. Patient's workup was personally reviewed by me. Patient has elevated AST and ALT but normal total bilirubin, direct bilirubin, and alkaline phosphatase. Abdominal CT was obtained that showed moderate amount of peripancreatic inflammation with inflammation near the gastric antrum and duodenum. There was evidence of cholelithiasis. No evidence of small-bowel obstruction. Hepatomegaly was noted. Abdominal ultrasound was also obtained that confirmed presence of cholelithiasis, the gallbladder wall was 3-4 mm and the common bile duct was normal in thickness. Review of Systems Narrative: General: no fevers CV: Difficult to take a deep breath due to pain. 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 Lives in an apartment with a roommate. What is your current living situation?: I presently have a place to live Problems where you live: no known problems Problems where you live details: NA In the past 12 months, utilities in danger of being shut off: no In past 12 months, lack of transportation kept you from medical appts, meetings, work, or getting things needed for daily living: no In the past 12 mos, have been you worried that your food would run out before you had money to buy more?: never true In the past 12 mos, the food you bought just didn't last and you didn't have money to buy more?: never true Highest level of school completed/degree received: Bachelor's degree Smoking Status: Never smoker Second hand tobacco smoke exposure: No How often do you have a drink containing alcohol: never AUDIT-C Alcohol total score: 0 Non-prescribed substance use: denies use Caffeine: No How often does anyone, including family, friends and others, physically hurt you : never How often does anyone, including family, friends and others, insult or talk down to you: never How often does anyone, including family, friends and others, threaten you with harm: never How often does anyone, including family, friends and others, scream or curse at you: never service: No Meds Home Medications and Allergies Home Medications ?Medication ?Instructions ?Recorded ?Confirmed ?Type No Known Home Medications 04/20/24 04/20/24 History Allergies Allergy/AdvReac Type Severity Reaction Status Date / Time No Known Drug Allergies Allergy Verified 04/20/24 18:57 Exam Narrative: Exam Narrative: General appearance: Alert, cooperative, and in no distress Pulmonary: Chest symmetric, lungs clear bilaterally Cardiovascular Heart: Regular rate and rhythm, S1, S2, no murmurs/rubs/gallops Gastrointestinal Abdominal: soft, not distended, most tenderness to palpation is in epigastrium and less tender in bilateral lower quadrants. There is a well- healed right lower quadrant surgical scar from his previous ileostomy and lower midline laparotomy scar from his previous surgery. Skin: Normal skin color, texture, and turgor. No rashes or lesions. Psychiatric: Alert, cooperative, normal affect. Const: Vital Signs, click to edit/add: Vital Signs - 24 hr 04/20/24 18:57 04/20/24 19:13 04/20/24 19:15 Temperature 97.6 F Pulse Rate 55 L Pulse Rate [Pulse Oximeter] 68 Pulse Rate [Right Pulse Oximeter] Respiratory Rate 20 Blood Pressure Blood Pressure [Ri ght Arm] Blood Pressure [Ri ght Upper Arm] 177/110 H Pulse Oximetry 98 99 96 Oxygen Delivery Me thod Room Air Oxygen Flow Rate 04/20/24 19:28 04/20/24 19:30 04/20/24 19:35 Temperature Pulse Rate 60 61 57 L Pulse Rate [Pulse Oximeter] Pulse Rate [Right Pulse Oximeter] Respiratory Rate Blood Pressure 183/103 H Blood Pressure [Ri ght Arm] Blood Pressure [Ri ght Upper Arm] Pulse Oximetry 93 95 96 Oxygen Delivery Me thod Oxygen Flow Rate 04/20/24 19:45 04/20/24 19:47 04/20/24 20:00 Temperature Pulse Rate 59 L 57 L 62 Pulse Rate [Pulse Oximeter] Pulse Rate [Right Pulse Oximeter] Respiratory Rate Blood Pressure 172/103 H Blood Pressure [Ri ght Arm] Blood Pressure [Ri ght Upper Arm] Pulse Oximetry 96 95 94 Oxygen Delivery Me thod Oxygen Flow Rate 04/20/24 20:02 04/20/24 20:17 04/20/24 20:32 Temperature Pulse Rate 68 68 69 Pulse Rate [Pulse Oximeter] Pulse Rate [Right Pulse Oximeter] Respiratory Rate 20 20 Blood Pressure 167/97 H 161/92 H 170/93 H Blood Pressure [Ri ght Arm] Blood Pressure [Ri ght Upper Arm] Pulse Oximetry 94 96 92 Oxygen Delivery Me thod Oxygen Flow Rate 04/20/24 20:37 04/20/24 20:47 04/20/24 21:02 Temperature 98.0 F Pulse Rate 79 73 Pulse Rate [Pulse Oximeter] Pulse Rate [Right Pulse Oximeter] 73 Respiratory Rate 20 20 20 Blood Pressure 163/95 H 167/104 H Blood Pressure [Ri ght Arm] 163/95 H Blood Pressure [Ri ght Upper Arm] Pulse Oximetry 95 96 94 Oxygen Delivery Me thod Room Air Oxygen Flow Rate 04/20/24 21:17 04/20/24 21:19 04/20/24 21:31 Temperature 98.0 F 98.0 F 96.5 F L Pulse Rate Pulse Rate [Pulse Oximeter] 68 68 Pulse Rate [Right Pulse Oximeter] 73 70 Respiratory Rate 20 20 16 Blood Pressure Blood Pressure [Ri ght Arm] 163/95 H 180/102 H Blood Pressure [Ri ght Upper Arm] 165/89 H 165/89 H Pulse Oximetry 94 95 Oxygen Delivery Me thod Room Air Room Air Oxygen Flow Rate 04/20/24 21:31 04/20/24 21:39 04/20/24 22:13 Temperature 96.5 F L 96.5 F L Pulse Rate Pulse Rate [Pulse Oximeter] Pulse Rate [Right Pulse Oximeter] 70 70 Respiratory Rate 16 16 16 Blood Pressure Blood Pressure [Ri ght Arm] 180/102 H 180/102 H Blood Pressure [Ri ght Upper Arm] Pulse Oximetry 95 95 95 Oxygen Delivery Pr thod Room Air Room Air Room Air Oxygen Flow Rate 04/20/24 23:29 04/20/24 23:33 04/20/24 23:34 Temperature 98.1 F Pulse Rate Pulse Rate [Pulse Oximeter] Pulse Rate [Right Pulse Oximeter] 84 84 Respiratory Rate 16 16 16 Blood Pressure Blood Pressure [Ri ght Arm] 154/99 H Blood Pressure [Ri ght Upper Arm] Pulse Oximetry 90 90 Oxygen Delivery Pr thod Room Air Room Air Oxygen Flow Rate 04/21/24 02:47 04/21/24 05:18 04/21/24 07:00 Temperature 98.1 F 98.1 F 98.6 F Pulse Rate Pulse Rate [Pulse Oximeter] Pulse Rate [Right Pulse Oximeter] 99 99 134 H Respiratory Rate 16 16 20 Blood Pressure Blood Pressure [Ri ght Arm] 145/88 H 145/88 H 158/115 H Blood Pressure [Ri ght Upper Arm] Pulse Oximetry 90 90 84 L Oxygen Delivery Me thod Room Air Room Air Room Air Oxygen Flow Rate 04/21/24 07:00 04/21/24 07:00 04/21/24 10:18 Temperature 98.6 F Pulse Rate Pulse Rate [Pulse Oximeter] Pulse Rate [Right Pulse Oximeter] 134 H 134 H Respiratory Rate 20 20 Blood Pressure Blood Pressure [Ri ght Arm] 158/115 H Blood Pressure [Ri ght Upper Arm] Pulse Oximetry 94 84 L Oxygen Delivery Me thod Nasal Cannula Room Air Oxygen Flow Rate 2 04/21/24 11:00 04/21/24 11:00 Temperature 97.6 F 97.6 F Pulse Rate Pulse Rate [Pulse Oximeter] Pulse Rate [Right Pulse Oximeter] 120 H 116 H Respiratory Rate 18 18 Blood Pressure Blood Pressure [Ri ght Arm] 147/97 H 147/97 H Blood Pressure [Ri ght Upper Arm] Pulse Oximetry 91 92 Oxygen Delivery Me thod Nasal Cannula Nasal Cannula Oxygen Flow Rate 2 2 Results Labs Labs: Abnormal lab results 04/20/24 04/20/24 04/20/24 Range/Units 19:10 19:13 22:40 WBC 12.42 H (4.50-11.00) K/uL MCV (80-100) fL Neut % (Auto) 74.7 H (42.0-72.0) % Lymph % (Auto) 16.7 L (20-44) % Neut # (Auto) 9.30 H (1.7-7.0) K/uL Lymph # (Auto) (0.90-2.90) K/uL D-Dimer Quant (PE/DVT) 1.69 H (0.00-0.50) ug/ml Potassium 3.5 L (3.6-5.1) mmol/L Glucose 155 H (60-115) mg/dL Lactate 4.7 H* 4.0 H (0.5-1.9) mmol/L Calcium 11.4 H (8.4-10.6) mg/dL Phosphorus (2.5-4.5) mg/dL Magnesium (1.5-2.6) mg/dL AST 149 H (12-35) U/L ALT 195 H (4-50) U/L Troponin I < 0.01 L (0.01-0.04) ng/mL C-Reactive Protein 1.1 H (0.5-1.0) mg/dL Total Protein 8.8 H (6.0-8.3) g/dL Albumin 5.2 H (3.3-5.0) g/dL Triglycerides (40-149) mg/dL Lipase 4624 H (23-300) U/L Ethyl Alcohol < 0.01 L (0.01-0.03) % POC Troponin I 0.00 L (0.01-0.04) ng/ml 04/21/24 04/21/24 Range/Units 06:07 09:15 WBC (4.50-11.00) K/uL MCV 101 H (80-100) fL Neut % (Auto) 87.6 H (42.0-72.0) % Lymph % (Auto) 7.4 L (20-44) % Neut # (Auto) 8.50 H (1.7-7.0) K/uL Lymph # (Auto) 0.70 L (0.90-2.90) K/uL D-Dimer Quant (PE/DVT) (0.00-0.50) ug/ml Potassium (3.6-5.1) mmol/L Glucose 124 H (60-115) mg/dL Lactate 2.8 H 2.3 H (0.5-1.9) mmol/L Calcium (8.4-10.6) mg/dL Phosphorus 6.2 H* (2.5-4.5) mg/dL Magnesium 1.3 L (1.5-2.6) mg/dL AST (12-35) U/L ALT (4-50) U/L Troponin I < 0.01 L (0.01-0.04) ng/mL C-Reactive Protein 4.0 H (0.5-1.0) mg/dL Total Protein (6.0-8.3) g/dL Albumin (3.3-5.0) g/dL Triglycerides 257 H (40-149) mg/dL Lipase 10402 H (23-300) U/L Ethyl Alcohol (0.01-0.03) % POC Troponin I (0.01-0.04) ng/ml Diabetes panel 04/20/24 04/21/24 Range/Units 19:10 06:07 Sodium 139 140 (135-149) mmol/L Potassium 3.5 L 4.1 (3.6-5.1) mmol/L Chloride 97 102 (96-114) mmol/L Carbon Dioxide 30 30 (20-32) mmol/L BUN 11 12 (5-24) mg/dL Creatinine 1.2 1.0 (0.5-1.5) mg/dL Glucose 155 H 124 H (60-115) mg/dL Calcium 11.4 H 10.1 (8.4-10.6) mg/dL AST 149 H (12-35) U/L ALT 195 H (4-50) U/L Alkaline Phosphatase 85 (40-150) U/L Total Protein 8.8 H (6.0-8.3) g/dL Albumin 5.2 H (3.3-5.0) g/dL Triglycerides 257 H (40-149) mg/dL HDL Cholesterol 49 (>=40) mg/dL Calcium panel 04/20/24 04/21/24 Range/Units 19:10 06:07 Calcium 11.4 H 10.1 (8.4-10.6) mg/dL Phosphorus 6.2 H* (2.5-4.5) mg/dL Albumin 5.2 H (3.3-5.0) g/dL Pituitary panel 04/20/24 04/21/24 Range/Units 19:10 06:07 Sodium 139 140 (135-149) mmol/L Potassium 3.5 L 4.1 (3.6-5.1) mmol/L Chloride 97 102 (96-114) mmol/L Carbon Dioxide 30 30 (20-32) mmol/L BUN 11 12 (5-24) mg/dL Creatinine 1.2 1.0 (0.5-1.5) mg/dL Glucose 155 H 124 H (60-115) mg/dL Calcium 11.4 H 10.1 (8.4-10.6) mg/dL Adrenal panel 04/20/24 04/21/24 Range/Units 19:10 06:07 Sodium 139 140 (135-149) mmol/L Potassium 3.5 L 4.1 (3.6-5.1) mmol/L Chloride 97 102 (96-114) mmol/L Carbon Dioxide 30 30 (20-32) mmol/L BUN 11 12 (5-24) mg/dL Creatinine 1.2 1.0 (0.5-1.5) mg/dL Glucose 155 H 124 H (60-115) mg/dL Calcium 11.4 H 10.1 (8.4-10.6) mg/dL Total Bilirubin 0.8 (0.1-1.5) mg/dL AST 149 H (12-35) U/L ALT 195 H (4-50) U/L Alkaline Phosphatase 85 (40-150) U/L Total Protein 8.8 H (6.0-8.3) g/dL Albumin 5.2 H (3.3-5.0) g/dL All other labs normal. Progress Note:A&P Assessment and plan (1) Pancreatitis: Status: Acute Plan 44-year-old male presents with pancreatitis. I discussed with the patient his laboratory and imaging findings. The etiology of patient's pancreatitis could be due to cholelithiasis or alcohol intake. With the patient having normal bilirubin and alkaline phosphatase as well as normal size of the common bile duct, I tend to lean towards alcohol intake as etiology of his pancreatitis. Patient's heart rate has been stable up until today and that increased to 130s. It did not improve with abdomen. This tachycardia could be due to combination of anxiety, alcohol withdrawal, and systemic inflammatory response. I would recommend trending lipase and liver function tests. I would also recommend given patient more IV fluid boluses since his lactate improved only mildly from his presentation. We should obtain HIDA scan to evaluate for cholecystitis. I had a discussion with the patient about stopping alcohol intake and he is committed to stopping that.
[2024-04-21] MEDS: PHENobarbitaL 260 MG in 0.9 % SODIUM CHLORIDE 100 ml 100 ML 208 MG IVPB (14:13)
[2024-04-21] MEDS: PANTOPRAZOLE SODIUM 40 MG INJ IVP (14:59)
--- NOTE | 2024-04-21 17:13 | RESP.RT ---
Pt lying on side. IS'd x 20 for 2.0L Excellent strong [employer] cough. Mentioned that it does hurt to cough. Explained need to continue to do IS, and sit in chair when able. He is wearing low flow oxygen. SPO2 94%.
--- NOTE | 2024-04-21 17:18 | PC.NURSE ---
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 Noted to be diaphoretic but no complaints of chest pain states does hurt to take a deep breath or it increases his abdomen pain when he does try to take a deep breath. Dr. Zurita was update. did a EKG and did receive a dose of ativan for his ciwa score of 9. Also placed on tele to continuously monitor his heart. Does drink ETOH and possibly experiencing a little withdrawal from not drinking. Did receive orders to give phenobarbital along with magnesium. He was rating his pain 9/10 when I first arrived and now this afternoon states pain is better maybe 3/10. No complaints of nausea but feel his acid reflux is worse usually takes tums at home from this. Did receive a dose of protonix. Have enc him to increase his activity but so far has only been up in his room to go to the bathroom. Will continue to monitor until next shift arrives.
[2024-04-21] MEDS: MAGNESIUM OXIDE 400 MG TABLET PO (20:16)
[2024-04-22] VITALS (11 sets, daily range): BP systolic 145–167; BP diastolic 87–104; PULSE 91–107; RESP 16–18; TEMP 36.9–37.6; O2SAT 91–97
[2024-04-22 06:29] LABS: Ionized Calcium* 1.17 mmol/L (1.11-1.30); Lactate* 1.5 mmol/L (0.5-1.9)
[2024-04-22 06:37] LABS: Basophils Absolute Auto 0.02 K/uL (0.00-0.30); Basophils Percent Auto 0.2 % (0.0-3.0); Eosinophils Absolute Auto 0.32 K/uL (0.00-0.50); Eosinophils Percent Auto 3.9 % (0.0-7.0); Hematocrit 40.5 % (37.0-53.0); Hemoglobin* 13.3 gm/dL (13.5-17.5); Immature Granulocytes Abs Auto 0.09 K/uL (0.00-0.30); Immature Granulocytes Pct Auto 1.1 %; Lymphocytes Percent Auto 11.2 % (20-44); Mean Corpuscular HGB Conc 33 gm/dL (32-36); Mean Corpuscular Hemoglobin 34 pg (26-34); Mean Corpuscular Volume 104 fL (80-100); Neutrophils Percent Auto 75.6 % (42.0-72.0); Platelet Count* 158 K/uL (140-440); RDW Coefficient of Variation % 13.1 % (11.5-15.5); Red Blood Count 3.89 m/uL (4.30-5.90); White Blood Count* 8.29 K/uL (4.50-11.00)
[2024-04-22 06:42] LABS: Slide Review Reflex No
--- NOTE | 2024-04-22 06:43 | PC.NURSE ---
19-: Pleasant and cooperative. Indep in room. Self caths, Rating pain 8/10, dilaudid given x 2, ice pack to abd. No opioids 6hr prior to HIDA scan, pt compliant, however does report increased abd pain. c/o nausea, Zofran and Compazine given, offered relief. No Ativan needed per [facility] protocol. Tele ? NSR/Tachy. HR 90s-110s at rest, with ambulation HR 120s-130s. Placed pt on 2L O2 while asleep, encouraging deep breathing exercises. ?
[2024-04-22 06:52] LABS: Albumin* 4.1 g/dL (3.3-5.0); Chloride* 104 mmol/L (96-114)
[2024-04-22 06:53] LABS: Potassium* 3.9 mmol/L (3.6-5.1); Sodium* 139 mmol/L (135-149)
[2024-04-22 06:55] LABS: Alkaline Phosphatase* 69 U/L (40-150); Anion Gap 7 mEq/L (7-15); Aspartate Amino Transferase* 66 U/L (12-35); Bilirubin Total* 1.2 mg/dL (0.1-1.5); Carbon Dioxide* 28 mmol/L (20-32); Creatinine* 1.1 mg/dL (0.5-1.5); Est. Creatinine Clearance* 95.04; Estimated Glomerular Filt Rate 85 ml/min; Total Protein* 6.9 g/dL (6.0-8.3)
[2024-04-22 06:56] LABS: Alanine Aminotransferase* 97 U/L (4-50); Blood Urea Nitrogen* 11 mg/dL (5-24); Calcium* 9.2 mg/dL (8.4-10.6); Glucose* 95 mg/dL (60-115); Magnesium* 1.6 mg/dL (1.5-2.6); Phosphorus* 2.5 mg/dL (2.5-4.5)
--- NOTE | 2024-04-22 07:00 | CRLHL7_ITS ---
For Patients: As a result of the Century Cures Act, medical imaging exams and procedure reports are released immediately into your electronic medical record. You may view this report before your referring provider. If you have questions, please contact your health care provider. INDICATION: Hypoxia COMPARISON: April 21, 2024 at 09:20 TECHNIQUE: A single view study was obtained as a portable CXRAugust 2023 at 06:49 FINDINGS: As discussed below IMPRESSION: 1. Normal cardiac contour. 2. Retrocardiac airspace opacity could represent atelectasis, aspiration or pneumonia. 3. No pleural effusion or pneumothorax. 4. Aeration at the lung bases has improved compared to April 21, 2024 Dictated by Victor Hugo Alexander MD @ 04/22/2024 7:00:41 AM (Electronically Signed)
--- NOTE | 2024-04-22 08:00 | CRLHL7_ITS ---
For Patients: As a result of the Century Cures Act, medical imaging exams and procedure reports are released immediately into your electronic medical record. You may view this report before your referring provider. If you have questions, please contact your health care provider. Indication: Pancreatitis, cholelithiasis Technique: Nuclear medicine hepatobiliary scan with gallbladder ejection fraction after the intravenous administration of 5.3 millicuries technetium 99 M Mebrofenin and 2.2 micrograms of CCK. Comparison: Abdominal ultrasound 04/21/2024 Findings: Delayed hepatic extraction and excretion of the radiopharmaceutical with relatively prompt appearance of the common bile duct followed by the small bowel and then the gallbladder. There is no enterogastric reflux. Visually normal gallbladder contraction is identified. Calculated gallbladder ejection fraction is 64 percent. Impression: Hepatocellular dysfunction, otherwise normal study. Dictated by Phill Tamayo MD @ 04/22/2024 11:02:28 AM (Electronically Signed)
[2024-04-22] MEDS: 0.9 % SODIUM CH + KCL 20 mEq/L 1,000 ML 125 ML IV ×2 (08:05→18:18)
[2024-04-22] MEDS: PANTOPRAZOLE SODIUM 40 MG INJ IVP (08:06)
[2024-04-22 09:03] LABS: Amphetamine Screen Urine Negative (Negative); Barbiturate Screen Urine Negative (Negative); Benzodiazepines Screen Urine Negative (Negative); Cannabinoid Screen Urine POSITIVE (Negative); Cocaine Screen Urine Negative (Negative); Methadone Screen Urine Negative (Negative); Methamphetamines Screen Urine Negative (Negative); Opiate Screen Urine Negative (Negative); Oxycodone Screen Urine Negative (Negative); Phencyclidine Screen Urine Negative (Negative); Tricyclic Antidepressant Urine Negative (Negative)
[2024-04-22 09:12] LABS: INR 1.08 (0.91-1.10); Prothrombin Time 14.7 Seconds
[2024-04-22 10:18] LABS: C Reactive Protein* 25.5 mg/dL (0.5-1.0); Lipase* 5944 U/L (23-300)
[2024-04-22] MEDS: MAGNESIUM OXIDE 400 MG TABLET PO ×2 (10:28→21:18)
[2024-04-22] MEDS: HYDROmorphone 0.5 mg/0.5 ml inj 1 MG IVP ×6 (10:29→21:18)
[2024-04-22] MEDS: ONDANSETRON 2 MG/ML inj 4 MG IVP ×2 (10:29→21:19)
--- NOTE | 2024-04-22 10:56 | P.GSPN_ITS ---
Subjective Subjective Date Seen: 04/22/24 Interval history: Patient still complains of abdominal pain but it is slightly better. The pain is still diffuse. He denies any nausea vomiting. He is passing ?lots? of gas. Exam Narrative: Exam Narrative: Abdomen is soft, not distended, not tender to percussion, tender to palpation throughout the abdomen but mostly in epigastrium. Const: Vital Signs, click to edit/add: Vital Signs - 24 hr 04/21/24 11:00 04/21/24 11:00 04/21/24 13:00 Temperature 97.6 F 97.6 F 96.1 F L Pulse Rate Pulse Rate [Right Pulse Oximeter] 120 H 116 H 107 H Respiratory Rate 18 18 18 Blood Pressure [Ri ght Arm] 147/97 H 147/97 H 159/105 H Pulse Oximetry 91 92 93 Oxygen Delivery Me thod Nasal Cannula Nasal Cannula Nasal Cannula Oxygen Flow Rate 2 2 2 04/21/24 15:00 04/21/24 15:00 04/21/24 15:00 Temperature 98.1 F 98.1 F Pulse Rate Pulse Rate [Right Pulse Oximeter] 129 H 129 H 129 H Respiratory Rate 18 18 18 Blood Pressure [Ri ght Arm] 136/96 H 136/96 H Pulse Oximetry 91 91 Oxygen Delivery Me thod Room Air Room Air Oxygen Flow Rate 04/21/24 15:00 04/21/24 15:00 04/21/24 16:30 Temperature 97.7 F Pulse Rate 136 H Pulse Rate [Right Pulse Oximeter] 106 H Respiratory Rate 16 Blood Pressure [Ri ght Arm] 159/95 H Pulse Oximetry 92 95 Oxygen Delivery Me thod Room Air Nasal Cannula Oxygen Flow Rate 2 04/21/24 19:30 04/21/24 19:30 04/21/24 22:21 Temperature 98.2 F 98.2 F Pulse Rate 97 Pulse Rate [Right Pulse Oximeter] 101 H 101 H Respiratory Rate 16 16 Blood Pressure [Ri ght Arm] 168/100 H 168/100 H Pulse Oximetry 96 96 Oxygen Delivery Me thod Nasal Cannula Nasal Cannula Oxygen Flow Rate 2.5 2.5 04/21/24 22:35 04/21/24 23:00 04/21/24 23:00 Temperature 99.3 F Pulse Rate Pulse Rate [Right Pulse Oximeter] 99 Respiratory Rate 16 16 16 Blood Pressure [Ri ght Arm] 142/80 H Pulse Oximetry 93 Oxygen Delivery Me thod Room Air Room Air Oxygen Flow Rate 04/21/24 23:00 04/22/24 04:00 04/22/24 07:47 Temperature 99.1 F Pulse Rate 91 Pulse Rate [Right Pulse Oximeter] Respiratory Rate 16 Blood Pressure [Ri ght Arm] 145/88 H Pulse Oximetry 85 L 93 Oxygen Delivery Me thod Room Air Nasal Cannula Oxygen Flow Rate 2 Progress Note:A&P Assessment and plan (1) Pancreatitis: Status: Acute Plan 44-year-old male admitted with pancreatitis. Patient is improving with conservative treatment. His tachycardia has improved. HIDA scan was performed today and on my review patient does not have any evidence of acute cholecystitis. Radiology read agrees. I think that etiology of patient's pancreatitis is most likely alcohol and not biliary colic. I would not recommend proceeding with laparoscopic cholecystectomy during this hospital stay. Will continue treating the patient conservatively until his lipase continues to improve and he can advance his diet. Possible advance to clear liquid diet tomorrow. If patient goes home and abstains from alcohol but de velops symptoms concerning for biliary colic, we would consider laparoscopic cholecystectomy at that point.
--- NOTE | 2024-04-22 11:01 | P.IMPN_ITS ---
Progress Note: A&P Assessment and plan (1) Pancreatitis: Problem details: - HIDA scan supports the etiology of alcohol use disorder vs gallstone/obstruction. - IV fluids, analgesics, antiemetics - clear liquids, advance to low fat diet as tolerated - Elevated lactate resolved Status: Acute (2) Tachycardia: Problem details: - sinus tachycardia on EKG, negative troponin --> resolving - also has elevated BP, likely combination of pain, anxiety, mild ETOH withdrawal, dehydration - telemetry initiated 04/21, continue pain mgmt, CIWA, IVFs - noted to have elevated d-dimer in ED on 04/20; will obtain CTA of chest today to evaluate for PE (Negative) Status: Acute (3) Tetrahydrocannabinol (THC) use disorder, mild, abuse: Problem details: +THC on UDS on admission. Status: Acute (4) Hepatic steatosis: Problem details: - ETOH vs elevated BMI vs idiopathic vs combination Status: Acute (5) Ileostomy status: Problem details: - status post total colectomy a number of years ago due to ulcerative colitis Status: Acute (6) Alcohol use disorder: Problem details: - consumes 8 drinks daily, beer mixed with vodka and Gatorade - denies alcohol withdrawal, CIWA protocol reviewed - stable/low Status: Acute Subjective Date Seen: 04/22/24 Interval history: Daily Progress Note - Hospital Medicine #: 3 CC: acute pancreatitis, alcohol use disorder 24 HOUR UPDATE: Patient has been fairly uncomfortable this morning as he has been without pain meds and NPO secondary to his scheduled HIDA scan this morning. I did review his HIDA scan images along side General surgery. Notable Labs, Micro, Rads, Interventions: Tachycardia is improving. Lipase is improving. CRP is up trending 1.1-25.5 CIWA scale reviewed 1-2 over the last 24 hours. Hida Scan this am: Findings: Delayed hepatic extraction and excretion of the radiopharmaceutical with relativ vidya prompt appearance of the common bile duct followed by the small bowel and then the gallbladder. There is no enterogastric reflux. Visually normal gallbladder contraction is identified. Calculated gallbladder ejection fraction is 64 percent. Impression: Hepatocellular dysfunction, otherwise normal study. Objective: flushed. coherent. thirsty. Vitals: see above Lungs: Clear. Cardiac: S1S2. Abdomen: generally tender; reports pressure and burning sensation to palpation. Disposition/Potential discharge - 24-48 hours Today I spent 50minutes seeing the patient, reviewing Expanse and EPIC notes/diagnostics, discussing the care plan with our care time that includes social work, PT/OT, pharmacy, RT, senior care and documenting my impressions and plan in the medical record. Exam Const: Vital Signs, click to edit/add: Vital Signs - 24 hr 04/21/24 13:00 04/21/24 15:00 04/21/24 15:00 Temperature 96.1 F L 98.1 F 98.1 F Pulse Rate Pulse Rate [Right Pulse Oximeter] 107 H 129 H 129 H Respiratory Rate 18 18 18 Blood Pressure [Ri ght Arm] 159/105 H 136/96 H 136/96 H Pulse Oximetry 93 91 91 Oxygen Delivery Me thod Nasal Cannula Room Air Room Air Oxygen Flow Rate 2 04/21/24 15:00 04/21/24 15:00 04/21/24 15:00 Temperature Pulse Rate 136 H Pulse Rate [Right Pulse Oximeter] 129 H Respiratory Rate 18 Blood Pressure [Ri ght Arm] Pulse Oximetry 92 Oxygen Delivery Me thod Room Air Oxygen Flow Rate 04/21/24 16:30 04/21/24 19:30 04/21/24 19:30 Temperature 97.7 F 98.2 F 98.2 F Pulse Rate Pulse Rate [Right Pulse Oximeter] 106 H 101 H 101 H Respiratory Rate 16 16 16 Blood Pressure [Ri ght Arm] 159/95 H 168/100 H 168/100 H Pulse Oximetry 95 96 96 Oxygen Delivery Me thod Nasal Cannula Nasal Cannula Nasal Cannula Oxygen Flow Rate 2 2.5 2.5 04/21/24 22:21 04/21/24 22:35 04/21/24 23:00 Temperature 99.3 F Pulse Rate 97 Pulse Rate [Right Pulse Oximeter] 99 Respiratory Rate 16 16 Blood Pressure [Ri ght Arm] 142/80 H Pulse Oximetry 93 Oxygen Delivery Me thod Room Air Oxygen Flow Rate 04/21/24 23:00 04/21/24 23:00 04/22/24 04:00 Temperature 99.1 F Pulse Rate Pulse Rate [Right Pulse Oximeter] Respiratory Rate 16 16 Blood Pressure [Ri ght Arm] 145/88 H Pulse Oximetry 85 L 93 Oxygen Delivery Me thod Room Air Room Air Nasal Cannula Oxygen Flow Rate 2 04/22/24 07:47 Temperature Pulse Rate 91 Pulse Rate [Right Pulse Oximeter] Respiratory Rate Blood Pressure [Ri ght Arm] Pulse Oximetry Oxygen Delivery Me thod Oxygen Flow Rate Labs Labs: Laboratory Results - last 24 hr 04/20/24 04/22/24 04/22/24 20:34 06:00 08:40 WBC 8.29 RBC 3.89 L Hgb 13.3 L Hct 40.5 MCV 104 H MCH 34 MCHC 33 RDW Coeff of Delaney 13.1 Plt Count 158 Neut % (Auto) 75.6 H Lymph % (Auto) 11.2 L [place] % (Auto) 8.0 Eos % (Auto) 3.9 Baso % (Auto) 0.2 Neut # (Auto) 6.30 Lymph # (Auto) 0.90 [place] # (Auto) 0.70 Eos # (Auto) 0.32 Baso # (Auto) 0.02 Abs Immat Gran (auto) 0.09 Imm/Tot Granulo (auto) 1.1 INR 1.08 Sodium 139 Potassium 3.9 Chloride 104 Carbon Dioxide 28 Anion Gap 7 BUN 11 Creatinine 1.1 Estimated Creat Clear 95.04 Estimated GFR 85 Glucose 95 Lactate 1.5 Calcium 9.2 Ionized Calcium Jose 1.17 Phosphorus 2.5 Magnesium 1.6 Total Bilirubin 1.2 AST 66 H ALT 97 H Alkaline Phosphatase 69 C-Reactive Protein 25.5 H Total Protein 6.9 Albumin 4.1 Lipase 5944 H Urine Opiates Screen Negative Ur Oxycodone Screen Negative Urine Methadone Screen Negative Ur Barbiturates Screen Negative U Tricyclic Antidepress Negative Ur Phencyclidine Scrn Negative Ur Amphetamines Screen Negative U Methamphetamines Scrn Negative U Benzodiazepines Scrn Negative Urine Cocaine Screen Negative U Marijuana (THC) Screen POSITIVE A Ur Drug Screen Comment See Note Lab Acknowledgement Test Added
[2024-04-23] VITALS (15 sets, daily range): BP systolic 130–169; BP diastolic 72–104; PULSE 82–107; RESP 16–20; TEMP 36.4–37.4; O2SAT 91–96
[2024-04-23] MEDS: HYDROmorphone 0.5 mg/0.5 ml inj 1 MG IVP ×2 (00:14→06:26)
[2024-04-23] MEDS: SODIUM CHLORIDE 0.9 % (FLUSH) 10 ML SYRINGE 5 ML IVF ×4 (00:16→20:47)
[2024-04-23] MEDS: OXYCODONE 5 MG TABLET PO ×5 (02:07→20:46)
[2024-04-23] MEDS: 0.9 % SODIUM CH + KCL 20 mEq/L 1,000 ML 125 ML IV (02:09)
[2024-04-23 05:59] LABS: HCO3 VBG 27 mmol/L (21-28); PCO2 VBG 43 mmHG (40-50); PO2 VBG 30.6 mmHG (25-47); pH VBG 7.404 (7.32-7.43)
[2024-04-23 06:01] LABS: Hematocrit 36.6 % (37.0-53.0); Hemoglobin* 12.2 gm/dL (13.5-17.5); Mean Corpuscular HGB Conc 33 gm/dL (32-36); Mean Corpuscular Hemoglobin 34 pg (26-34); Mean Corpuscular Volume 103 fL (80-100); Platelet Count* 127 K/uL (140-440); Red Blood Count 3.57 m/uL (4.30-5.90); White Blood Count* 6.17 K/uL (4.50-11.00)
[2024-04-23 06:03] LABS: Slide Review Reflex No
[2024-04-23 06:18] LABS: Albumin* 3.7 g/dL (3.3-5.0); Chloride* 99 mmol/L (96-114); Sodium* 133 mmol/L (135-149)
[2024-04-23 06:19] LABS: Potassium* 3.8 mmol/L (3.6-5.1)
[2024-04-23 06:21] LABS: Alkaline Phosphatase* 62 U/L (40-150); Anion Gap 10 mEq/L (7-15); Aspartate Amino Transferase* 49 U/L (12-35); Blood Urea Nitrogen* 9 mg/dL (5-24); Carbon Dioxide* 24 mmol/L (20-32); Est. Creatinine Clearance* 104.54; Estimated Glomerular Filt Rate 96 ml/min; Lipase* 981 U/L (23-300); Total Protein* 6.4 g/dL (6.0-8.3)
[2024-04-23 06:22] LABS: Alanine Aminotransferase* 62 U/L (4-50); Calcium* 8.1 mg/dL (8.4-10.6); Glucose* 73 mg/dL (60-115)
[2024-04-23 06:44] LABS: C Reactive Protein* 21.3 mg/dL (0.5-1.0)
--- NOTE | 2024-04-23 06:56 | PC.NURSE ---
Shift note: Pt has consistently rated pain level at 8 to 10. Deluded and Oxycodone given. Alert and oriented and independent in room. No agitation, anxiety, headache, or hallucination recorded. Pt had 4X BM tonight. He had adequate sleep, vitally stable.
[2024-04-23] MEDS: MAGNESIUM OXIDE 400 MG TABLET PO ×2 (07:51→20:46)
[2024-04-23] MEDS: PANTOPRAZOLE SODIUM 40 MG INJ IVP (07:51)
[2024-04-23] MEDS: KETOROLAC 30 MG/ML inj IVP ×3 (09:32→22:17)
[2024-04-23] MEDS: ACETAMINOPHEN 325 MG TABLET 975 MG PO ×3 (09:33→20:46)
--- NOTE | 2024-04-23 11:14 | PM.IMPN1 ---
Progress Note: A&P Assessment and plan (1) Pancreatitis: Problem details: - HIDA scan supports the etiology of alcohol use disorder vs gallstone/obstruction. - off IV fluids; start clear diet, advance to low fat diet as tolerated. - ok to use toradol and tylenol - then oral oxy. holding iv dilaudid. Status: Acute (2) Alcohol use disorder: Problem details: - consumes 8 drinks daily, beer mixed with vodka and Gatorade - denies alcohol withdrawal, CIWA protocol reviewed - stable/low Status: Acute Subjective Date Seen: 04/23/24 Interval history: Daily Progress Note - Hospital Medicine #: 4 CC: acute pancreatitis, alcohol use disorder 24 HOUR UPDATE: patient up independent, showered. pain is better, patient is less anxious but still with a lot of concern. Notable Labs, Micro, Rads, Interventions: Tachycardia is still present but less than 110, sinus tach. plts down to 127. normal gas this morning. LFTS downtrending. Lipase is improving nicely. CRP has peaked and is now downtrending. CIWA scale reviewed 1-2 over the last 24 hours. Hida Scan reviewed 04/22. Objective: much improved overall appearance from yesterday to today. Vitals: see above Lungs: Clear. Cardiac: S1S2. Abdomen: generally tender; reports pressure and burning sensation to palpation. Disposition/Potential discharge - 24-48 hours Today I spent 50minutes seeing the patient, reviewing Expanse and EPIC notes/diagnostics, discussing the care plan with our care time that includes social work, PT/OT, pharmacy, RT, snf and documenting my impressions and plan in the medical record. Exam Const: Vital Signs, click to edit/add: Vital Signs - 24 hr 04/22/24 12:00 04/22/24 15:00 04/22/24 15:00 Temperature 99.6 F Pulse Rate Pulse Rate [Right Pulse Oximeter] 99 100 Respiratory Rate 18 18 Blood Pressure [Ri ght Arm] 152/97 H Pulse Oximetry 91 91 Oxygen Delivery Me thod Room Air Room Air Oxygen Flow Rate 04/22/24 15:00 04/22/24 15:38 04/22/24 16:00 Temperature 98.7 F 98.7 F Pulse Rate 101 H Pulse Rate [Right Pulse Oximeter] 100 100 Respiratory Rate 18 18 Blood Pressure [Ri ght Arm] 153/104 H 153/104 H Pulse Oximetry 91 91 Oxygen Delivery Me thod Room Air Room Air Oxygen Flow Rate 04/22/24 19:00 04/22/24 20:00 04/22/24 23:00 Temperature 99 F 99 F Pulse Rate 101 H Pulse Rate [Right Pulse Oximeter] 103 H 103 H Respiratory Rate 18 18 Blood Pressure [Ri ght Arm] 152/101 H 152/101 H Pulse Oximetry 91 91 Oxygen Delivery Me thod Room Air Room Air Oxygen Flow Rate 2 04/22/24 23:00 04/22/24 23:00 04/22/24 23:20 Temperature 98.4 F Pulse Rate Pulse Rate [Right Pulse Oximeter] 107 H 107 H Respiratory Rate 18 18 18 Blood Pressure [Ri ght Arm] 167/87 H Pulse Oximetry 91 91 Oxygen Delivery Me thod Room Air Room Air Oxygen Flow Rate 04/23/24 00:00 04/23/24 02:12 04/23/24 04:00 Temperature 98.4 F 99.4 F 99.4 F Pulse Rate Pulse Rate [Right Pulse Oximeter] 107 H 88 88 Respiratory Rate 18 18 18 Blood Pressure [Ri ght Arm] 167/87 H 135/72 135/72 Pulse Oximetry 91 95 95 Oxygen Delivery Me thod Room Air Nasal Cannula Nasal Cannula Oxygen Flow Rate 2 2 04/23/24 07:35 04/23/24 09:49 04/23/24 09:49 Temperature 98.9 F Pulse Rate 106 H Pulse Rate [Right Pulse Oximeter] 102 H Respiratory Rate 16 Blood Pressure [Ri ght Arm] 169/104 H Pulse Oximetry 92 91 Oxygen Delivery Me thod Room Air Room Air Oxygen Flow Rate 04/23/24 09:49 Temperature 98.8 F Pulse Rate Pulse Rate [Right Pulse Oximeter] 106 H Respiratory Rate 16 Blood Pressure [Ri ght Arm] 130/78 Pulse Oximetry 91 Oxygen Delivery Me thod Room Air Oxygen Flow Rate Labs Labs: Laboratory Results - last 24 hr 04/23/24 05:48 WBC 6.17 RBC 3.57 L Hgb 12.2 L Hct 36.6 L MCV 103 H MCH 34 MCHC 33 Plt Count 127 L VBG pH 7.404 VBG pCO2 43 VBG pO2 30.6 VBG HCO3 27 Sodium 133 L Potassium 3.8 Chloride 99 Carbon Dioxide 24 Anion Gap 10 BUN 9 Creatinine 1.0 Estimated Creat Clear 104.54 Estimated GFR 96 Glucose 73 Calcium 8.1 L Total Bilirubin 1.0 AST 49 H ALT 62 H Alkaline Phosphatase 62 C-Reactive Protein 21.3 H Total Protein 6.4 Albumin 3.7 Lipase 981 H TSH 2.380
--- NOTE | 2024-04-23 12:51 | ONC.NURNOTE ---
End of shift note: Patient showered, ambulated in the ho X4, has advanced to clear liquids. IV fluids have been DC'd. Pain is consistently around an 8-9/10. Pain has moved from upper abdomen down to lower abdomen. Patient has been having small liquid BMs that are greenish in color every time he voids. Patient has hx of ulcerative colitis and had a major bowel surgery in 2011 where he now has a j-pouch and liquid stool is his baseline. Has tolerated clear liquids so far. Denies nausea and vomiting. Pain does not worsen with liquids. Taking scheduled Tylenol and PRN oxycodone and Ketoralac. PIV intact and patent. BP elevated and MD aware. Heart rate was elevated this AM, but has come down into the 80s now. Patient is alert and orientated. CIWA scores have been around 3. Telemetry shows NSR/Sinus Tachycardia. Lung sounds are diminished and abdomen is distended and firm. Patient is doing IS with reminders. Skin intact. Afebrile. Has been on RA all day and not requiring oxygen since overnight. MD aware that patient required oxygen overnight. Per MD, will likely need sleep study as an outpatient.
--- NOTE | 2024-04-23 19:20 | PC.NURSE ---
end of shift [id number] - RN took over pt care at approximately 1500. Pt alert, oriented, cooperative and pleasant. Up independently in room and observed to walk in halls. Pt reported pain in abdomen as 7/10 and reported that pain increased with change of position and coughing. Medication given per MAR with pt verbalizing improved comfort. Tolerating RA, clear liquid and full liquid diet with mild increase in discomfort. RN provided education on food choices to help ease discomfort with pt verbalizing understanding. Observed to sleep during shift, appears to be resting comfortably at end of shift with call light within reach.
[2024-04-24] VITALS (18 sets, daily range): BP systolic 141–158; BP diastolic 81–107; PULSE 75–91; RESP 16–20; TEMP 36.3–37.6; O2SAT 93–97
[2024-04-24] MEDS: OXYCODONE 5 MG TABLET PO ×4 (00:57→15:28)
[2024-04-24] MEDS: ACETAMINOPHEN 325 MG TABLET 975 MG PO ×3 (04:32→20:45)
--- NOTE | 2024-04-24 05:25 | PC.NURSE ---
Shift note: Patient's condition is improving as HR dropped to within normal range. However, pt continue to request for pain medications consistently. Rated pain at 8 to 10. Continue to have frequent bowel movement per baseline. Alert and oriented, ambulated independently in room. Tolerated clear liquid well. No nausea and vomiting recorded.
[2024-04-24 08:04] LABS: Chloride* 99 mmol/L (96-114); Potassium* 3.1 mmol/L (3.6-5.1); Sodium* 133 mmol/L (135-149)
[2024-04-24 08:07] LABS: Anion Gap 9 mEq/L (7-15); Blood Urea Nitrogen* 7 mg/dL (5-24); Carbon Dioxide* 25 mmol/L (20-32); Creatinine* 0.9 mg/dL (0.5-1.5); Est. Creatinine Clearance* 116.16; Estimated Glomerular Filt Rate 109 ml/min; Lipase* 1207 U/L (23-300)
[2024-04-24 08:08] LABS: Calcium* 7.8 mg/dL (8.4-10.6); Glucose* 76 mg/dL (60-115)
[2024-04-24 08:23] LABS: C Reactive Protein* 24.9 mg/dL (0.5-1.0)
--- NOTE | 2024-04-24 09:18 | PM.IMPN1 ---
Progress Note: A&P Assessment and plan (1) Pancreatitis: Problem details: - HIDA scan supports the etiology of alcohol use disorder vs gallstone/obstruction. - off IV fluids; start clear diet, advance to low fat diet as tolerated. - ok to use toradol and tylenol - then oral oxy. holding iv dilaudid. Status: Acute (2) Alcohol use disorder: Problem details: - consumes 8 drinks daily, beer mixed with vodka and Gatorade - denies alcohol withdrawal, CIWA protocol reviewed - stable/low Status: Acute (3) Electrolyte abnormality: Problem details: -mild hyponatremia -mild hypokalemia, will replace Status: Acute Subjective Date Seen: 04/24/24 Interval history: Daily Progress Note - Hospital Medicine Day #: 5 CC: acute pancreatitis, alcohol use disorder 24 HOUR UPDATE: patient up independent, showered. pain is better, patient is less anxious but still with a lot of concern. Notable Labs, Micro, Rads, Interventions: Tachycardia has resolved. CBC was not checked today. Chemistry show a drop in his potassium and a stable mild hyponatremia. With the initiation of a clear liquid diet we did see a small bump in his lipase 981 up to 1200. His CRP also jumped up a little bit 21.3-24.9. CIWA scale reviewed 1-2 over the last 24 hours. Hida Scan reviewed 04/22. Objective: He looks well and in no acute distress. Vitals: see above Lungs: Clear. Cardiac: S1S2. Abdomen: generally tender; reports pressure and burning sensation to palpation. This is improving. Disposition/Potential discharge - 24 hours Today I spent 50minutes seeing the patient, reviewing Expanse and EPIC notes/diagnostics, discussing the care plan with our care time that includes social work, PT/OT, pharmacy, RT, chcf and documenting my impressions and plan in the medical record. Exam Const: Vital Signs, click to edit/add: Vital Signs - 24 hr 04/23/24 09:49 04/23/24 09:49 04/23/24 09:49 Temperature 98.8 F Pulse Rate 106 H Pulse Rate [Right Pulse Oximeter] 106 H Respiratory Rate 16 Blood Pressure [Ri ght Arm] 130/78 Pulse Oximetry 91 91 Oxygen Delivery Me thod Room Air Room Air 04/23/24 11:59 04/23/24 13:11 04/23/24 16:30 Temperature 98.3 F 98.3 F Pulse Rate 107 H Pulse Rate [Right Pulse Oximeter] 82 82 Respiratory Rate 16 16 Blood Pressure [Ri ght Arm] 150/91 H 150/91 H Pulse Oximetry 96 96 Oxygen Delivery Me thod Room Air Room Air 04/23/24 16:33 04/23/24 16:34 04/23/24 17:32 Temperature 97.6 F 97.6 F Pulse Rate Pulse Rate [Right Pulse Oximeter] 90 90 Respiratory Rate 20 20 20 Blood Pressure [Ri ght Arm] 165/96 H 165/96 H Pulse Oximetry 95 95 95 Oxygen Delivery Me thod Room Air Room Air Room Air 04/23/24 19:00 04/23/24 21:00 04/23/24 22:16 Temperature 98.1 F 98.1 F 97.7 F Pulse Rate Pulse Rate [Right Pulse Oximeter] 95 95 86 Respiratory Rate 20 20 20 Blood Pressure [Ri ght Arm] 155/98 H 155/98 H 146/97 H Pulse Oximetry 92 92 91 Oxygen Delivery Me thod Room Air Room Air Room Air 04/23/24 22:51 04/23/24 22:51 04/23/24 22:51 Temperature Pulse Rate 101 H Pulse Rate [Right Pulse Oximeter] 86 Respiratory Rate 20 20 Blood Pressure [Ri ght Arm] Pulse Oximetry 91 Oxygen Delivery Me thod Room Air 04/24/24 01:00 04/24/24 03:00 04/24/24 04:35 Temperature 99.7 F H 99.7 F H 99 F Pulse Rate Pulse Rate [Right Pulse Oximeter] 85 85 85 Respiratory Rate 20 20 20 Blood Pressure [Ri ght Arm] 141/81 H 141/81 H 149/81 H Pulse Oximetry 93 93 93 Oxygen Delivery Me thod Room Air Room Air Room Air 04/24/24 08:48 Temperature Pulse Rate 81 Pulse Rate [Right Pulse Oximeter] Respiratory Rate Blood Pressure [Ri ght Arm] Pulse Oximetry Oxygen Delivery Me thod Labs Labs: Laboratory Results - last 24 hr 04/24/24 06:10 Sodium 133 L Potassium 3.1 L Chloride 99 Carbon Dioxide 25 Anion Gap 9 BUN 7 Creatinine 0.9 Estimated Creat Clear 116.16 Estimated GFR 109 Glucose 76 Calcium 7.8 L C-Reactive Protein 24.9 H Lipase 1207 H
[2024-04-24] MEDS: MAGNESIUM OXIDE 400 MG TABLET PO ×2 (09:19→20:46)
[2024-04-24] MEDS: KETOROLAC 30 MG/ML inj IVP ×2 (09:19→20:22)
[2024-04-24] MEDS: PANTOPRAZOLE SODIUM 40 MG INJ IVP (09:20)
[2024-04-24] MEDS: SODIUM CHLORIDE 0.9 % (FLUSH) 10 ML SYRINGE 5 ML IVF ×2 (09:20→20:26)
--- NOTE | 2024-04-24 10:20 | NUTR.NU ---
RDN with nutrition screen for diet education related to pancreatitis. Patient admitted for Hepatic steatosis and pancreatitis, most likely associated with alcohol use. Past medical history includes but not limited to daily alcohol use (consumes up to 8 drinks daily, beer mixed with vodka and Gatorade) and status post Ileostomy (has ileostomy a number of years ago due to ulcerative colitis). Current weight 243 lb 8oz; height 6ft; BMI 33.0 kg/m2. Weight fairly stable since admission with admission weight of 240lbs. Current diet order is low fat/low cholesterol. Pancreatitis is a new diagnosis for patient. Patient agreed to receive diet education related to pancreatitis. Patient was provided diet education on a low fat diet. Discussed foods to include and foods to avoid. Education also provided following a low fat diet long-term. Verbal and written information as well as a sample menu provided from [facility]. Patient verbalized understanding. RDN's contact information was provided and patient was encouraged to contact RDN with questions.
[2024-04-24] MEDS: POTASSIUM BICARB 25 MEQ EFFERVESCENT TAB PO ×2 (10:38→15:28)
--- NOTE | 2024-04-24 19:52 | PC.NURSE ---
End of shift - Pt alert, oriented, cooperative. Up independently in room and halls. Tolerating transition to regular diet, pt reported increased discomfort and feeling of bloating in abdomen after mean. Reported pain in abdomen as 7/10, managed with medication per MAR with pt reporting improved comfort. Tolerating RA. Appears to be resting comfortably in bed at end of shift with call light within reach.
[2024-04-25] VITALS (10 sets, daily range): BP systolic 121–158; BP diastolic 72–99; PULSE 72–88; RESP 16–18; TEMP 36.2–37.3; O2SAT 94–97
[2024-04-25] MEDS: LORazepam 1 MG TABLET PO (00:06)
[2024-04-25] MEDS: CALCIUM CARBONATE 500 MG CHEW PO (00:06)
[2024-04-25] MEDS: ACETAMINOPHEN 325 MG TABLET 975 MG PO ×4 (03:13→20:50)
--- NOTE | 2024-04-25 06:13 | PC.NURSE ---
End of shift [id number]: Pt alert & oriented x 4 and able to make needs known. IV to R forearm patent and SL. PRN Toradol given last evening for c/o 8/10 abdominal pain which was effective upon followup. Pt's pain has since been controlled with scheduled Tylenol per pt report. Pt hesitant to take additional Oxycodone stating, I don't like the way that makes me feel. Pt diet to advance as tolerated per MD though pt reported increased pain after eating last evening. Pt reported he was able to eat 100% of tuna sandwich last evening. Blood pressures remain elevated at times which is unchanged since admission. This could be influenced by pt?s baseline anxiety. He reports poor sleep and having anxiety when at home. MD gave one time order for po Ativan to be given after midnight which was completed per order. Pt up independently. He has been afebrile throughout the shift with no c/o CP. CIWAs have been 1 due to pt?s baseline anxiety. He has been denying all other symptoms when asked. Pt continent of bowel and bladder.
[2024-04-25 06:36] LABS: Hematocrit 34.4 % (37.0-53.0); Hemoglobin* 11.7 gm/dL (13.5-17.5); Mean Corpuscular HGB Conc 34 gm/dL (32-36); Mean Corpuscular Hemoglobin 34 pg (26-34); Mean Corpuscular Volume 99 fL (80-100); Platelet Count* 217 K/uL (140-440); Red Blood Count 3.49 m/uL (4.30-5.90); White Blood Count* 4.29 K/uL (4.50-11.00)
[2024-04-25 06:55] LABS: Slide Review Reflex No
[2024-04-25 07:02] LABS: Chloride* 100 mmol/L (96-114); Sodium* 136 mmol/L (135-149)
[2024-04-25 07:04] LABS: Creatinine* 0.8 mg/dL (0.5-1.5); Est. Creatinine Clearance* 130.68; Estimated Glomerular Filt Rate 113 ml/min
[2024-04-25 07:05] LABS: Anion Gap 8 mEq/L (7-15); Blood Urea Nitrogen* 5 mg/dL (5-24); Calcium* 7.9 mg/dL (8.4-10.6); Carbon Dioxide* 28 mmol/L (20-32); Glucose* 100 mg/dL (60-115); Lipase* 1644 U/L (23-300)
[2024-04-25 07:49] LABS: Potassium* 2.7 mmol/L (3.6-5.1)
--- NOTE | 2024-04-25 08:08 | CRLHL7_ITS ---
For Patients: As a result of the Century Cures Act, medical imaging exams and procedure reports are released immediately into your electronic medical record. You may view this report before your referring provider. If you have questions, please contact your health care provider. INDICATION: Follow-up pancreatitis. COMPARISON: 04/20/2024 TECHNIQUE: CT of the chest, abdomen and pelvis with 117 cc of Isovue 370 intravenous contrast. Please note that all CT scans at this facility use dose modulation, iterative reconstruction, and/or weight-based dosing when appropriate to reduce radiation dose to as low as reasonably achievable. FINDINGS: CHEST Visualized Lower Neck: No lower cervical adenopathy. Lungs and Pleura: Partial atelectasis of the left lower lobe. Incidental Juxtapleural 5 mm solid right lower lobe nodule (4; 71). No routine imaging surveillance is indicated for such findings in the absence of an established history of malignancy and in the absence of risk factors for lung cancer such as a smoking history. If the latter, an optional 12 month follow-up chest CT, according to Fleischner management guidelines, is suggested. Multiple benign calcified left lower lobe granulomas. Small dependent low-density bilateral pleural effusions, left larger than right. No pneumothorax. Mediastinum: Thoracic aorta and pulmonary trunk are normal in caliber. Mild atherosclerotic coronary artery calcifications. Trachea and esophagus are normal in appearance. Unchanged clustered nonenlarged right upper paratracheal mediastinal lymph nodes. Calcified left lower lobar, interlobar and subcarinal mediastinal lymph nodes are consistent with the sequela of old granulomatous disease. ABDOMEN Liver: Hepatic steatosis. No suspicious focal hepatic lesion. No intrahepatic biliary ductal dilatation. Patent portal and hepatic veins. Gallbladder: Cholelithiasis. Persistent 3 mm calcification in the pancreaticoduodenal groove (2; 172) suspicious for possible choledocholithiasis in this patient with evidence of acute pancreatitis. Normal extrahepatic bile duct caliber. No pericholecystic inflammatory changes. Pancreas: No evidence of pancreatic necrosis. Persistent peripancreatic fat stranding and free fluid consistent with acute interstitial pancreatitis. Small volume free fluid within the lesser sac. Normal duct caliber. No peripancreatic inflammatory changes. Spleen: Normal splenic attenuation. No suspicious focal lesion. Patent splenic artery and vein. Adrenal Glands: Symmetrical adrenal glands. No focal lesion of significance. Kidneys: Normal bilateral renal attenuation. No suspicious focal lesion. No obstructing nephrolith or dilatation of the intrarenal collecting systems. Patent renal arteries and veins. Gastrointestinal tract: No acute findings. Subtotal colectomy. Vascular: Abdominal aorta and its major proximal branches including the celiac, superior mesenteric, inferior mesenteric, renal, and bilateral common iliac arteries are patent. Inferior vena cava, portal and superior mesenteric veins are patent. Additional findings: Small volume left subphrenic ascites. No adenopathy per imaging criteria. No evidence of pneumoperitoneum. PELVIS No bladder lesion is identified. No significant incidental findings related to the prostate and seminal vesicles. No abnormal free fluid. No adenopathy per imaging criteria. SKELETON AND BODY WALL No acute or suspicious incidental findings. Advanced disc degeneration at L5-S1. Left hip arthroplasty. IMPRESSION: 1. Acute interstitial pancreatitis. Small volume acute peripancreatic fluid collection in the lesser sac and anterior pararenal space of the retroperitoneum. Persistent 3 mm calcification in the pancreaticoduodenal groove (2; 172) suspicious for possible choledocholithiasis. Consider MRCP. 2. Partial atelectasis of the left lower lobe. Small bilateral pleural effusions, left larger than right. 3. Hepatic steatosis. Cholelithiasis. 4. Incidental 5 mm solid right lower lobe nodule. Management recommendations as above. Please note that all CT scans at this facility use dose modulation, iterative reconstruction, and/or weight-based dosing when appropriate to reduce radiation dose to as low as reasonably achievable. Dictated by Lazarus Hernandez MD @ 04/25/2024 10:20:37 AM (Electronically Signed)
[2024-04-25 08:33] LABS: C Reactive Protein* 19.9 mg/dL (0.5-1.0)
[2024-04-25] MEDS: POTASSIUM BICARB 25 MEQ EFFERVESCENT TAB PO (10:08)
[2024-04-25] MEDS: MAGNESIUM OXIDE 400 MG TABLET PO ×2 (10:08→20:50)
[2024-04-25] MEDS: PANTOPRAZOLE SODIUM 40 MG INJ IVP (10:10)
[2024-04-25] MEDS: SODIUM CHLORIDE 0.9 % (FLUSH) 10 ML SYRINGE 5 ML IVF ×2 (10:11→21:51)
--- NOTE | 2024-04-25 10:22 | CRLHL7_ITS ---
For Patients: As a result of the Century Cures Act, medical imaging exams and procedure reports are released immediately into your electronic medical record. You may view this report before your referring provider. If you have questions, please contact your health care provider. Indication: Abdominal pain Technique: Multiplanar multisequence images through the abdomen, MRCP protocol Comparison: CT chest abdomen pelvis 04/25/2024 Findings: Lower chest: Trace bilateral pleural effusions. Liver: Hepatic steatosis. Gallbladder: Cholelithiasis without evidence of cholecystitis. Bile ducts: Unremarkable. Spleen: Unremarkable. Pancreas: Redemonstration of peripancreatic fat stranding, with peripancreatic fluid collections measuring 2.3 by 1.4 centimeters (04/06) along the pancreatic body/tail, a 2.4 by 1 centimeter along the pancreatic proximal body (04/09), and a collection above the pancreatic tail measuring 3.5 x 1.6 centimeters (03/30). There is a 4 millimeter hypodense lesion in the pancreatic body (04/09), likely side branch IPMN, but without visualized connection to the main pancreatic duct. Adrenal glands: Unremarkable. Kidneys and Ureters: Unremarkable. Lymph Nodes: No enlarged lymph nodes. Vasculature: Unremarkable. Bowel: No obstruction. Peritoneum: Collections as above. Trace ascites. Abdominal wall: Unremarkable Bones: No acute or suspicious osseous lesions. Impression: Acute interstitial edematous pancreatitis with acute peripancreatic fluid collections, new compared to prior. No choledocholithiasis. Cystic lesion in the pancreatic neck measuring 4 millimeters, likely side branch IPMN. Reimaging with MR can be considered in 1 year. Dictated by Andree Mosquera MD @ 04/25/2024 1:31:22 PM (Electronically Signed)
--- NOTE | 2024-04-25 11:00 | PM.IMPN1 ---
Progress Note: A&P Assessment and plan (1) Pancreatitis: Problem details: - clinical improvement has stalled today; CT suggests possible choledocholithiasis - await results of MRCP; LFTS still elevated, GGT increasing - ice chips/clears as advancement Status: Acute (2) Alcohol use disorder: Problem details: - consumes 8 drinks daily, beer mixed with vodka and Gatorade - denies alcohol withdrawal, CIWA protocol reviewed - stable/low Status: Acute (3) Electrolyte abnormality: Problem details: -mild hyponatremia -moderate hypokalemia, will replace Status: Acute Subjective Date Seen: 04/25/24 Interval history: Daily Progress Note - Hospital Medicine Day #: 6 CC: acute pancreatitis, alcohol use disorder vs choledocholithiasis 24 HOUR UPDATE: patient up independent, however eating triggers more pain, bloating. no fever. vitally stable. He expressed frustration on long process. Notable Labs, Micro, Rads, Interventions: Tachycardia has resolved. White count down to 4.2 Hemoglobin down to 11.7 Platelets normal Potassium has dropped to 2.7 CRP is still elevated but down trended lipase climbing in the last two days CIWA scale reviewed 1-2 over the last 24 hours. Hida Scan reviewed 04/22. CT Chest/Abd/Pelvis ordered this morning - IMPRESSION: 1. Acute interstitial pancreatitis. Small volume acute peripancreatic fluid collection in the lesser sac and anterior pararenal space of the retroperitoneum. Persistent 3 mm calcification in the pancreaticoduodenal groove (2; 172) suspicious for possible choledocholithiasis. Consider MRCP. 2. Partial atelectasis of the left lower lobe. Small bilateral pleural effusions, left larger than right. 3. Hepatic steatosis. Cholelithiasis. 4. Incidental 5 mm solid right lower lobe nodule. Management recommendations as above Objective: He looks well, anxious, a little flushed. walking the halls. Vitals: see above Lungs: Clear. Cardiac: S1S2. Abdomen: generally tender; reports pressure and burning sensation to palpation. This has not really changed by his report over the last 24 hours. Disposition/Potential discharge - pending further workup Today I spent 50minutes seeing the patient, reviewing Expanse and EPIC notes/diagnostics, discussing the care plan with our care time that includes social work, PT/OT, pharmacy, RT, long term and documenting my impressions and plan in the medical record. Exam Const: Vital Signs, click to edit/add: Vital Signs - 24 hr 04/24/24 11:51 04/24/24 15:51 04/24/24 15:56 Temperature Pulse Rate 89 Pulse Rate [Right Pulse Oximeter] Respiratory Rate 20 20 Blood Pressure [Ri ght Arm] Pulse Oximetry 93 95 Oxygen Delivery Me thod Room Air Room Air 04/24/24 15:58 04/24/24 16:55 04/24/24 20:30 Temperature 98.1 F 98.1 F 98.2 F Pulse Rate Pulse Rate [Right Pulse Oximeter] 85 86 90 Respiratory Rate 20 20 16 Blood Pressure [Ri ght Arm] 155/105 H 158/107 H 156/94 H Pulse Oximetry 95 95 95 Oxygen Delivery Me thod Room Air Room Air Room Air 04/24/24 22:45 04/24/24 22:55 04/24/24 22:57 Temperature 97.4 F L 97.4 F L Pulse Rate Pulse Rate [Right Pulse Oximeter] 75 75 Respiratory Rate 18 18 18 Blood Pressure [Ri ght Arm] 149/105 H 149/105 H Pulse Oximetry 97 97 97 Oxygen Delivery Me thod Room Air Room Air Room Air 04/24/24 23:00 04/24/24 23:03 04/25/24 03:16 Temperature 98.8 F Pulse Rate 79 Pulse Rate [Right Pulse Oximeter] 75 80 Respiratory Rate 18 16 Blood Pressure [Ri ght Arm] 129/78 Pulse Oximetry 94 Oxygen Delivery Me thod Room Air 04/25/24 03:17 04/25/24 07:00 04/25/24 07:00 Temperature 98.8 F 97.5 F L Pulse Rate Pulse Rate [Right Pulse Oximeter] 80 75 Respiratory Rate 16 16 18 Blood Pressure [Ri ght Arm] 129/78 121/72 Pulse Oximetry 94 94 94 Oxygen Delivery Me thod Room Air Room Air Room Air 04/25/24 07:00 04/25/24 08:00 Temperature 99.1 F Pulse Rate 88 Pulse Rate [Right Pulse Oximeter] 75 Respiratory Rate 16 Blood Pressure [Ri ght Arm] 158/99 H Pulse Oximetry 97 Oxygen Delivery Me thod Room Air Labs Labs: Laboratory Results - last 24 hr 04/25/24 04/25/24 05:57 07:58 WBC 4.29 L RBC 3.49 L Hgb 11.7 L Hct 34.4 L MCV 99 MCH 34 MCHC 34 Plt Count 217 Sodium 136 Potassium 2.7 L* Chloride 100 Carbon Dioxide 28 Anion Gap 8 BUN 5 Creatinine 0.8 Estimated Creat Clear 130.68 Estimated GFR 113 Glucose 100 Calcium 7.9 L C-Reactive Protein 19.9 H Lipase 1644 H Lab Acknowledgement Test Added
[2024-04-25] MEDS: LORazepam 2 MG/ML inj IVP (11:37)
[2024-04-25] MEDS: POTASSIUM CHLORIDE 10 MEQ/100 ML PIGGYBACK 100 MEQ IVPB ×2 (13:06→14:25)
[2024-04-25] MEDS: OXYCODONE 5 MG TABLET PO ×3 (17:06→23:13)
[2024-04-25] MEDS: ONDANSETRON 2 MG/ML inj 4 MG IVP (17:07)
[2024-04-25] MEDS: POTASSIUM CHLORIDE 10 MEQ/100 ML PIGGYBACK 60 MEQ IVPB ×2 (17:43→19:45)
[2024-04-26] VITALS (7 sets, daily range): BP systolic 137–153; BP diastolic 89–107; PULSE 70–88; RESP 16; TEMP 36.1–36.8; O2SAT 94–98
[2024-04-26 02:17] LABS: HCO3 VBG 29 mmol/L (21-28); PCO2 VBG 51 mmHG (40-50); PO2 VBG 33.1 mmHG (25-47)
[2024-04-26 02:19] LABS: pH VBG 7.372 (7.32-7.43)
[2024-04-26] MEDS: ACETAMINOPHEN 325 MG TABLET 975 MG PO ×4 (03:23→21:06)
--- NOTE | 2024-04-26 06:30 | PC.NURSE ---
End of shift [id number]: A&O pleasant and cooperative. VSS w/ sats >90% on RA. Reports pain in abdomen. Oxycodone used for pain control with stated relief from pt. Up at cristel in room. Having frequent bowel movements. Denies n/v. Using call light appropriately.
[2024-04-26 06:51] LABS: Hematocrit 35.1 % (37.0-53.0); Hemoglobin* 11.6 gm/dL (13.5-17.5); Mean Corpuscular HGB Conc 33 gm/dL (32-36); Mean Corpuscular Hemoglobin 33 pg (26-34); Mean Corpuscular Volume 100 fL (80-100); Platelet Count* 309 K/uL (140-440); Red Blood Count 3.52 m/uL (4.30-5.90); White Blood Count* 6.06 K/uL (4.50-11.00)
[2024-04-26 07:00] LABS: Slide Review Reflex No
[2024-04-26 07:05] LABS: Albumin* 3.8 g/dL (3.3-5.0); Chloride* 103 mmol/L (96-114)
[2024-04-26 07:06] LABS: Sodium* 139 mmol/L (135-149)
[2024-04-26 07:08] LABS: Alanine Aminotransferase* 42 U/L (4-50); Alkaline Phosphatase* 141 U/L (40-150); Anion Gap 9 mEq/L (7-15); Aspartate Amino Transferase* 44 U/L (12-35); Bilirubin Total* 0.6 mg/dL (0.1-1.5); Blood Urea Nitrogen* 3 mg/dL (5-24); Carbon Dioxide* 27 mmol/L (20-32); Creatinine* 0.7 mg/dL (0.5-1.5); Est. Creatinine Clearance* 149.35; Estimated Glomerular Filt Rate 117 ml/min; Glucose* 104 mg/dL (60-115); Lipase* 1759 U/L (23-300); Total Protein* 6.9 g/dL (6.0-8.3)
[2024-04-26 07:09] LABS: Calcium* 7.8 mg/dL (8.4-10.6)
[2024-04-26 07:30] LABS: C Reactive Protein* 13.4 mg/dL (0.5-1.0)
[2024-04-26] MEDS: POTASSIUM CHLORIDE 10 MEQ CAPSULE ER 20 MEQ PO ×3 (08:11→11:28)
[2024-04-26 09:15] LABS: Magnesium* 1.9 mg/dL (1.5-2.6)
[2024-04-26] MEDS: MAGNESIUM OXIDE 400 MG TABLET PO ×2 (09:34→21:06)
[2024-04-26] MEDS: SODIUM CHLORIDE 0.9 % (FLUSH) 10 ML SYRINGE 5 ML IVF ×2 (09:35→21:07)
[2024-04-26] MEDS: PANTOPRAZOLE SODIUM 40 MG INJ IVP (09:35)
[2024-04-26] MEDS: KETOROLAC 15 MG/ML inj IVP (09:36)
[2024-04-26 11:19] LABS: Gamma Glutamyl Transpeptidase* 394 U/L (8-55)
[2024-04-26] MEDS: OXYCODONE 5 MG TABLET PO ×4 (11:28→21:06)
--- NOTE | 2024-04-26 14:54 | PM.IMPN1 ---
Progress Note: A&P Assessment and plan (1) Pancreatitis: Problem details: Likely due to alcohol abuse. With presence of gallstones if having recurrent problems re-evaluate for gallstone pancreatitis. Status: Acute (2) Hypokalemia: Problem details: Likely due to alcohol abuse and poor oral intake. Monitor and replace Status: Acute (3) Alcohol use disorder: Problem details: Acknowledges alcohol abuse. Committed to abstinence. No alcohol withdrawal during this hospital stay. May be playing a role in high blood pressure. Likely cause of fatty liver and pancreatitis Status: Acute (4) Hepatic steatosis: Problem details: Probably primarily alcohol related. Outpatient follow-up Status: Acute (5) Tetrahydrocannabinol (THC) use disorder, mild, abuse: Problem details: +THC on UDS on admission. Status: Acute (6) Ileostomy status: Problem details: - status post total colectomy a number of years ago due to ulcerative colitis. Status: Acute (7) Sleep apnea: Problem details: Clinically suspected. Chronically poor sleeper. May be contributing to hypertension. Outpatient follow-up with sleep study Status: Suspected (8) IPMN (intraductal papillary mucinous neoplasm): Problem details: Seen on MRCP April 2024. Consider repeat MR in April 2025. Status: Suspected (9) Elevated blood pressure reading without diagnosis of hypertension: Problem details: Elevated blood pressures in the hospital. Outpatient follow-up recommended. Absence from alcohol and treatment of sleep apnea may be beneficial Status: Acute Time Spent With Patient Total time spent: Total time spent today is 60 minutes in evaluation and management. Subjective Date Seen: 04/26/24 Interval history: 44-year-old male with history of ulcerative colitis status post colectomy admitted to the hospital on April 20 with epigastric abdominal pain. He was found to have pancreatitis based on elevated lipase of 5944, abdominal CT scan showing peripancreatic inflammatory change without pancreatic necrosis and ultrasound showing small gallstones with mild gallbladder wall thickening at 3-4 mm and a common bile duct of 6 mm without a visualized stone. He was also found to have hepatomegaly and hepatic steatosis. Initially there was some clinical uncertainty as the cause of his pancreatitis. Alcohol was thought to be a likely contributor but also possibly biliary disease. He underwent a HIDA scan which showed delayed hepatic extraction and excretion but prompt filling of the common bile duct and then the gallbladder. Normal gallbladder contraction of 64%. Repeat CT scan showed interstitial pancreatitis and raise the possibility of choledocholithiasis. MRCP was obtained showing acute interstitial edematous pancreatitis with acute peripancreatic fluid collections and no choledocholithiasis. There was a cystic lesion in the pancreatic neck measuring 4 mm which was suspected to be a side branch IPMN. Consider repeat imaging with MR in 1 year. During his hospital stay he has been gradually improving. He has been taking in p.o. fluids but minimal solid food. His pain is been getting better and he is weaned off of opioid pain medications. He has had no problems with alcohol withdrawal. Early in his hospital stay he was having hypoxia at night and treated with nasal cannula oxygen at 2 liters/minute. In the last 4 days he has not required supplemental oxygen. Exam Narrative: Exam Narrative: He is alert and appears in no distress. Speech is normal. He is pleasant and cooperative. Respirations are clear to auscultation. Cardiovascular: S1, S2, regular rate and rhythm. Abdomen: Bowel sounds are active. Abdomen is soft. He has mild epigastric tenderness. 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 Extremities without edema Const: Vital Signs, click to edit/add: Vital Signs - 24 hr 04/25/24 15:00 04/25/24 15:00 04/25/24 15:55 Temperature 98.4 F Pulse Rate [Right Pulse Oximeter] 83 Respiratory Rate 18 18 18 Blood Pressure [L forearm] Blood Pressure [Ri ght Arm] 154/98 H Pulse Oximetry 96 94 Oxygen Delivery [place] thod Room Air Room Air 04/25/24 19:44 04/25/24 23:08 04/25/24 23:15 Temperature 97.1 F L 97.2 F L Pulse Rate [Right Pulse Oximeter] 79 72 Respiratory Rate 18 16 16 Blood Pressure [L forearm] Blood Pressure [Ri ght Arm] 144/95 H 140/96 H Pulse Oximetry 95 97 97 Oxygen Delivery [place] thod Room Air Room Air 04/26/24 03:00 04/26/24 07:00 04/26/24 07:00 Temperature 98 F 98.2 F Pulse Rate [Right Pulse Oximeter] 88 74 Respiratory Rate 16 16 Blood Pressure [L forearm] 148/89 H Blood Pressure [Ri ght Arm] 153/107 H Pulse Oximetry 98 95 Oxygen Delivery [place] thod Room Air Room Air Room Air 04/26/24 11:00 Temperature 97 F L Pulse Rate [Right Pulse Oximeter] 79 Respiratory Rate 16 Blood Pressure [L forearm] Blood Pressure [Ri ght Arm] 147/98 H Pulse Oximetry 95 Oxygen Delivery Me thod Room Air Documenting provider has reviewed patient's vital signs: yes Labs Labs: Laboratory Results - last 24 hr 04/26/24 04/26/24 04/26/24 00:10 06:24 07:25 WBC 6.06 RBC 3.52 L Hgb 11.6 L Hct 35.1 L MCV 100 MCH 33 MCHC 33 Plt Count 309 VBG pH 7.372 VBG pCO2 51 H VBG pO2 33.1 VBG HCO3 29 H Sodium 139 Potassium 3.0 L Chloride 103 Carbon Dioxide 27 Anion Gap 9 BUN 3 L Creatinine 0.7 Estimated Creat Clear 149.35 Estimated GFR 117 Glucose 104 Calcium 7.8 L Magnesium 1.9 Total Bilirubin 0.6 GGT 394 H AST 44 H ALT 42 Alkaline Phosphatase 141 C-Reactive Protein 13.4 H Total Protein 6.9 Albumin 3.8 Lipase 1759 H Lab Acknowledgement Test Added
--- NOTE | 2024-04-26 18:12 | PC.NURSE ---
End of shift note (): Pt A&Ox3, pleasant, and cooperative. Indep in room.?VSS with sats >90% on RA.?LS COA. Denies H/V/CP/SOB. Pt expressed pain throughout the shift, relief noted with PRN pain medication. Pt expressed abdomen feeling ?bloated?, walking is the preferred solution for Pt as of right now. Pt resting comfortably watching TV, call light within reach. ?
[2024-04-27 03:17] VITALS: BP 144/97; PULSE 71; RESP 16; TEMP 36.6; O2SAT 97
[2024-04-27] MEDS: ACETAMINOPHEN 325 MG TABLET 975 MG PO ×2 (03:24→10:12)
--- NOTE | 2024-04-27 06:26 | PC.NURSE ---
End of shift [id number]: A&O pleasant and cooperative. VSS. Abdominal pain controlled with one does of oxycodone and scheduled tylenol. Ambulated in ho multiple times throughout shift. Up at cristel. BS active. Denies n/v. Tolerating diet.
[2024-04-27 06:57] LABS: Chloride* 105 mmol/L (96-114)
[2024-04-27 06:58] LABS: Potassium* 3.1 mmol/L (3.6-5.1); Sodium* 138 mmol/L (135-149)
[2024-04-27 07:00] VITALS: BP 146/95; PULSE 66; RESP 16; TEMP 36.6; O2SAT 97
[2024-04-27 07:00] LABS: Creatinine* 0.7 mg/dL (0.5-1.5); Est. Creatinine Clearance* 149.35; Estimated Glomerular Filt Rate 117 ml/min
[2024-04-27 07:01] LABS: Anion Gap 7 mEq/L (7-15); Blood Urea Nitrogen* 5 mg/dL (5-24); Calcium* 8.1 mg/dL (8.4-10.6); Carbon Dioxide* 26 mmol/L (20-32); Glucose* 109 mg/dL (60-115)
[2024-04-27 07:04] LABS: C Reactive Protein* 7.7 mg/dL (0.5-1.0)
[2024-04-27 07:10] LABS: Lipase* 2348 U/L (23-300)
[2024-04-27] MEDS: PANTOPRAZOLE SODIUM 40 MG INJ IVP (08:10)
[2024-04-27] MEDS: POTASSIUM BICARB 25 MEQ EFFERVESCENT TAB 50 MEQ PO ×2 (08:10→10:09)
[2024-04-27] MEDS: MAGNESIUM OXIDE 400 MG TABLET PO (08:10)
[2024-04-27] MEDS: SODIUM CHLORIDE 0.9 % (FLUSH) 10 ML SYRINGE 5 ML IVF (08:11)
[2024-04-27 11:00] VITALS: BP 142/99; PULSE 86; RESP 18; TEMP 36.1; O2SAT 96
--- NOTE | 2024-04-27 11:41 | PM.DS1 ---
DS: Providers Provider Date Seen: 04/27/24 Date of admission: 04/20/24 22:02 Primary care physician: Not a Local Provider Admitting Clinician: Yonatan Ventura MD Attending Physician on discharge: Deshaun Kumar MD Date of Discharge: 04/27/24 DS: Diagnosis Discharge Diagnosis (1) Pancreatitis: Status: Acute Problem details: Likely due to alcohol abuse. With presence of gallstones if having recurrent problems re-evaluate for gallstone pancreatitis as well as recurrent alcohol use. (2) Hypokalemia: Status: Acute Problem details: Likely due to alcohol abuse and poor oral intake. Required large doses of potassium to replace. Outpatient followup to reassess potassium need. (3) Alcohol use disorder: Status: Acute Problem details: Acknowledges alcohol abuse. Committed to abstinence. No alcohol withdrawal during this hospital stay. May be playing a role in high blood pressure. Likely cause of fatty liver and pancreatitis (4) Hepatic steatosis: Status: Acute Problem details: Probably primarily alcohol related. Outpatient follow-up (5) Tetrahydrocannabinol (THC) use disorder, mild, abuse: Status: Acute Problem details: +THC on UDS on admission. (6) Ileostomy status: Status: Acute Problem details: - status post total colectomy a number of years ago due to ulcerative colitis. (7) Sleep apnea: Status: Suspected Problem details: Clinically suspected. Chronically poor sleeper. May be contributing to hypertension. Outpatient follow-up with sleep study (8) IPMN (intraductal papillary mucinous neoplasm): Status: Suspected Problem details: Seen on MRCP April 2024. Consider repeat MR in April 2025. (9) Elevated blood pressure reading without diagnosis of hypertension: Status: Acute Problem details: Elevated blood pressures in the hospital. Outpatient follow-up recommended. Absence from alcohol and treatment of sleep apnea may be beneficial DS: Summary Hospital Course Hospital Course: 44-year-old male with history of ulcerative colitis status post colectomy admitted to the hospital on April 20 with epigastric abdominal pain. He was found to have pancreatitis based on elevated lipase of 5944, abdominal CT scan showing peripancreatic inflammatory change without pancreatic necrosis and ultrasound showing small gallstones with mild gallbladder wall thickening at 3-4 mm and a common bile duct of 6 mm without a visualized stone. He was also found to have hepatomegaly and hepatic steatosis. Initially there was some clinical uncertainty as the cause of his pancreatitis. Alcohol was thought to be a likely contributor but also possibly biliary disease. He underwent a HIDA scan which showed delayed hepatic extraction and excretion but prompt filling of the common bile duct and then the gallbladder. Normal gallbladder contraction of 64%. Repeat CT scan showed interstitial pancreatitis and raise the possibility of choledocholithiasis. MRCP was obtained showing acute interstitial edematous pancreatitis with acute peripancreatic fluid collections and no choledocholithiasis. There was a cystic lesion in the pancreatic neck measuring 4 mm which was suspected to be a side branch IPMN. Consider repeat imaging with MR in 1 year. During his hospital stay he has been gradually improving. He has been advancing his diet. His pain is been getting better and he is weaned off of opioid pain medications. He has had no problems with alcohol withdrawal. Early in his hospital stay he was having hypoxia at night and treated with nasal cannula oxygen at 2 liters/minute. In the last 4 days he has not required supplemental oxygen. Hypokalemia has been an ongoing problem. Will discharge on supplemental potassium pending outpatient followup Status at Discharge Overall status at discharge: patient is progressing back to baseline Time Spent with Patient Time attestation: Total time spent providing and/or coordinating discharge services: Time spent: Greater than 30 minutes Exam Narrative: Exam Narrative: He is alert and appears in no distress. Abdomen: Bowel sounds active. Abdomen is soft without tenderness or mass. No peritonitis. Extremities without edema. Const: Vital Signs, click to edit/add: Vital Signs - 24 hr 04/26/24 15:00 04/26/24 15:00 04/26/24 19:23 Temperature 97.5 F L 97.4 F L Pulse Rate [Right Pulse Oximeter] 80 74 Respiratory Rate 16 16 Blood Pressure [L forearm] 137/89 Blood Pressure [Ri ght Arm] 140/93 H Pulse Oximetry 94 96 Oxygen Delivery Me thod Room Air Room Air Room Air 04/26/24 23:45 04/26/24 23:47 04/27/24 03:17 Temperature 97.4 F L 97.9 F Pulse Rate [Right Pulse Oximeter] 70 71 Respiratory Rate 16 16 16 Blood Pressure [L forearm] 144/97 H Blood Pressure [Ri ght Arm] 143/95 H Pulse Oximetry 96 96 97 Oxygen Delivery Me thod Room Air Room Air Room Air 04/27/24 07:00 04/27/24 07:00 Temperature 97.9 F Pulse Rate [Right Pulse Oximeter] 66 Respiratory Rate 16 Blood Pressure [L forearm] 146/95 H Blood Pressure [Ri ght Arm] Pulse Oximetry 97 Oxygen Delivery Me thod Room Air Room Air Documenting provider has reviewed patient's vital signs: yes DS: Data Data Completed and Pending Labs on day of discharge: Labs from last 24 hours 04/27/24 04/27/24 06:40 06:16 Sodium 138 Potassium 3.1 L Chloride 105 Carbon Dioxide 26 Anion Gap 7 BUN 5 Creatinine 0.7 Estimated Creat Clear 149.35 Estimated GFR 117 Glucose 109 Calcium 8.1 L C-Reactive Protein 7.7 H Lipase 2348 H Lab Acknowledgement Test Added Imaging MRI - abdomen: Radiologist's impression: Indication: Abdominal pain Technique: Multiplanar multisequence images through the abdomen, MRCP protocol Comparison: CT chest abdomen pelvis 04/25/2024 Findings: Lower chest: Trace bilateral pleural effusions. Liver: Hepatic steatosis. Gallbladder: Cholelithiasis without evidence of cholecystitis. Bile ducts: Unremarkable. Spleen: Unremarkable. Pancreas: Redemonstration of peripancreatic fat stranding, with peripancreatic fluid collections measuring 2.3 by 1.4 centimeters (04/06) along the pancreatic body/tail, a 2.4 by 1 centimeter along the pancreatic proximal body (04/09), and a collection above the pancreatic tail measuring 3.5 x 1.6 centimeters (03/30). There is a 4 millimeter hypodense lesion in the pancreatic body (04/09), likely side branch IPMN, but without visualized connection to the main pancreatic duct. Adrenal glands: Unremarkable. Kidneys and Ureters: Unremarkable. Lymph Nodes: No enlarged lymph nodes. Vasculature: Unremarkable. Bowel: No obstruction. Peritoneum: Collections as above. Trace ascites. Abdominal wall: Unremarkable Bones: No acute or suspicious osseous lesions. Impression: Acute interstitial edematous pancreatitis with acute peripancreatic fluid collections, new compared to prior. No choledocholithiasis. Cystic lesion in the pancreatic neck measuring 4 millimeters, likely side branch IPMN. Reimaging with MR can be considered in [address] Chest/Ab/Pelvis: Radiologist's impression: INDICATION: Follow-up pancreatitis. COMPARISON: 04/20/2024 TECHNIQUE: CT of the chest, abdomen and pelvis with 117 cc of Isovue 370 intravenous contrast. Please note that all CT scans at this facility use dose modulation, iterative reconstruction, and/or weight-based dosing when appropriate to reduce radiation dose to as low as reasonably achievable. FINDINGS: CHEST Visualized Lower Neck: No lower cervical adenopathy. Lungs and Pleura: Partial atelectasis of the left lower lobe. Incidental Juxtapleural 5 mm solid right lower lobe nodule (4; 71). No routine imaging surveillance is indicated for such findings in the absence of an established history of malignancy and in the absence of risk factors for lung cancer such as a smoking history. If the latter, an optional 12 month follow-up chest CT, according to Fleischner management guidelines, is suggested. Multiple benign calcified left lower lobe granulomas. Small dependent low-density bilateral pleural effusions, left larger than right. No pneumothorax. Mediastinum: Thoracic aorta and pulmonary trunk are normal in caliber. Mild atherosclerotic coronary artery calcifications. Trachea and esophagus are normal in appearance. Unchanged clustered nonenlarged right upper paratracheal mediastinal lymph nodes. Calcified left lower lobar, interlobar and subcarinal mediastinal lymph nodes are consistent with the sequela of old granulomatous disease. ABDOMEN Liver: Hepatic steatosis. No suspicious focal hepatic lesion. No intrahepatic biliary ductal dilatation. Patent portal and hepatic veins. Gallbladder: Cholelithiasis. Persistent 3 mm calcification in the pancreaticoduodenal groove (2; 172) suspicious for possible choledocholithiasis in this patient with evidence of acute pancreatitis. Normal extrahepatic bile duct caliber. No pericholecystic inflammatory changes. Pancreas: No evidence of pancreatic necrosis. Persistent peripancreatic fat stranding and free fluid consistent with acute interstitial pancreatitis. Small volume free fluid within the lesser sac. Normal duct caliber. No peripancreatic inflammatory changes. Spleen: Normal splenic attenuation. No suspicious focal lesion. Patent splenic artery and vein. Adrenal Glands: Symmetrical adrenal glands. No focal lesion of significance. Kidneys: Normal bilateral renal attenuation. No suspicious focal lesion. No obstructing nephrolith or dilatation of the intrarenal collecting systems. Patent renal arteries and veins. Gastrointestinal tract: No acute findings. Subtotal colectomy. Vascular: Abdominal aorta and its major proximal branches including the celiac, superior mesenteric, inferior mesenteric, renal, and bilateral common iliac arteries are patent. Inferior vena cava, portal and superior mesenteric veins are patent. Additional findings: Small volume left subphrenic ascites. No adenopathy per imaging criteria. No evidence of pneumoperitoneum. PELVIS No bladder lesion is identified. No significant incidental findings related to the prostate and seminal vesicles. No abnormal free fluid. No adenopathy per imaging criteria. SKELETON AND BODY WALL No acute or suspicious incidental findings. Advanced disc degeneration at L5-S1. Left hip arthroplasty. IMPRESSION: 1. Acute interstitial pancreatitis. Small volume acute peripancreatic fluid collection in the lesser sac and anterior pararenal space of the retroperitoneum. Persistent 3 mm calcification in the pancreaticoduodenal groove (2; 172) suspicious for possible choledocholithiasis. Consider MRCP. 2. Partial atelectasis of the left lower lobe. Small bilateral pleural effusions, left larger than right. 3. Hepatic steatosis. Cholelithiasis. 4. Incidental 5 mm solid right lower lobe nodule. Management recommendations as above. HIDA: Radiologist's impression: Indication: Pancreatitis, cholelithiasis Technique: Nuclear medicine hepatobiliary scan with gallbladder ejection fraction after the intravenous administration of 5.3 millicuries technetium 99 M Mebrofenin and 2.2 micrograms of CCK. Comparison: Abdominal ultrasound 04/21/2024 Findings: Delayed hepatic extraction and excretion of the radiopharmaceutical with relatively prompt appearance of the common bile duct followed by the small bowel and then the gallbladder. There is no enterogastric reflux. Visually normal gallbladder contraction is identified. Calculated gallbladder ejection fraction is 64 percent. Impression: Hepatocellular dysfunction, otherwise normal study. Discharge Plan Discharge Disposition: Home, Self-Care Date of Admission: 04/20/24 22:02 Attending Provider on Discharge: Kanu Kumar Primary Care Provider: Provider,Not a Local Condition: Stable Anticipated Discharge Date/Time: 04/27/24 13:00 Discharge Medications: New acetaminophen 325 mg Tablet 975 mg PO Q6H Qty: 100 0RF melatonin 3 mg Tablet 3 mg PO HS PRN (Reason: Insomnia) Qty: 30 0RF potassium chloride 10 mEq capsule, extended release 10 meq PO DAILY Qty: 30 0RF Discharge Orders: Discharge Order (Routine); Ordered 04/27/24 Ordered By: Kanu Kumar Patient Education: Acetaminophen (By mouth), Potassium Chloride (By mouth), Melatonin (By mouth), Pancreatitis (DC), Hypokalemia (DC) Additional Instructions: Avoid drinking alcohol. For some people this is difficult and a need professional help with it. We can provide referrals or your primary care provider can provide assistance in helping you abstain from alcohol. We have arranged an appointment for you at the [facility] in [place] to establish care with and have blood tests again. Activity Level: No Restrictions Discharge Diet: Regular Follow Up Appointments: Griselda Kapadia PA-C [Physician Reporting Manager] - 05/05/24 9:00 am ([facility] for follow up appointment) Provider,Not a Local [Primary Care Provider] - Forms: [employer] Info Instructions
--- NOTE | 2024-04-27 12:53 | PC.NURSE ---
Pt discharged @ 1246 via ambulation and self. Belonging and discharge forms signed.
== END 2024-04-27 12:46 | disposition home or self-care (01) | DRG 282 ==
LOC: ED 20:36 → MEDSURG 21:14
PROVIDERS: Family Medicine; Admitting Provider Internal Medicine; Emergency Provider Family Medicine; Visit Provider Internal Medicine
DX: K85.20 Alcohol induced acute pancreatitis without necrosis or infection (principal); K51.90 Ulcerative colitis, unspecified, without complications; Z93.2 Ileostomy status; Z90.49 Acquired absence of other specified parts of digestive tract; R00.0 Tachycardia, unspecified; K76.0 Fatty (change of) liver, not elsewhere classified; F12.90 Cannabis use, unspecified, uncomplicated; F10.90 Alcohol use, unspecified, uncomplicated; Y90.0 Blood alcohol level of less than 20 mg/100 ml; E87.0 Hyperosmolality and hypernatremia; E87.6 Hypokalemia; G47.30 Sleep apnea, unspecified; R03.0 Elevated blood-pressure reading, without diagnosis of hypertension; D13.6 Benign neoplasm of pancreas
CPT/HCPCS: 36415; 71045; 71260; 71275; 74174; 74177; 74181; 76705; 78227; 80048; 80053; 80061; 80076; 80306; 81001; 82077; 82330; 82803; 82977; 83605; 83690; 83735; 84100; 84132; 84145; 84443; 84484; 85025; 85027; 85379; 85610; 86140; 87086; 93005; 94761; 99284; 99285; A9270; A9537; J1170; J1885; J2060; J2270; J2405; J2470; J2560; J2805; J3475; J3480; J7030; J7120; Q9967

== ENCOUNTER 2024-05-05 10:17 | Outpatient (CLI) | payer BC, SELFPAY | END 2024-05-05 10:18 | disposition home or self-care (01) | LOC: NFLDREF 05-09 01:01 | PROVIDERS: Visit Provider Physician Assistant Medical | DX: E87.6 Hypokalemia (principal); K85.20 Alcohol induced acute pancreatitis without necrosis or infection; R03.0 Elevated blood-pressure reading, without diagnosis of hypertension | CPT/HCPCS: 83735 ==